=== PATIENT | female | born 1965 | race Caucasian/White ===

== ENCOUNTER 2016-06-19 10:21 | Emergency (ER) | payer OTHER ==
[2016-06-19 12:04] VITALS: BP 125/77
[2016-06-19] MEDS ORDERED: predniSONE TAB* 20 MG PO ONE (12:37)
[2016-06-19] MEDS ORDERED: Ketorolac INJ* 60 MG/2 ML VIAL IM ONE (12:37)
[2016-06-19] MEDS ORDERED: diPHENhydraMINE PO* 25 MG PO ONE (12:37)
--- NOTE | 2016-06-30 20:18 | UC ---
Abdominal Pain Female HPI - HPI Summary HPI Summary: 1. has itching and red rash after using a new soap---2. has burning in mesh hernia site after lifting boxes at work-seen at ED yesterday for same c/o - History of Current Complaint Chief Complaint: UCGeneralIllness Stated Complaint: RASH Time Seen by Provider: 06/19/16 12:14 Hx Obtained From: Patient Hx Last Menstrual Period: 2005 ?: No Onset/Duration: Sudden Onset Timing: Constant Severity Initially: Moderate Severity Currently: Moderate Pain Intensity: 10 Pain Scale Used: 0-10 Numeric Location: Diffuse Radiates: No Character: Burning Aggravating Factor(s): Movement - LIFTING Alleviating Factor(s): Other: - REST Associated Signs and Symptoms: Positive: Negative Allergies/Adverse Reactions: Allergies Allergy/AdvReac Type Severity Reaction Status Date / Time Apple Allergy Severe Swelling Verified 06/10/16 18:49 Amoxicillin Allergy Intermediate Hives Verified 06/19/16 12:04 Morphine Allergy Intermediate Hives Verified 06/19/16 12:04 Penicillins Allergy Intermediate Hives Verified 06/19/16 12:04 SEAWEED SOAP Allergy Hives Uncoded 06/19/16 11:53 Home Medications: Home Medications Albuterol HFA INHALER* [Ventolin HFA Inhaler*] 2 puff INH Q4H PRN 06/19/16 [ History Confirmed 06/19/16] Med For Restless Legs 1 tab PO BEDTIME 06/19/16 [History] traZODone TAB* [Desyrel TAB*] 50 mg PO BEDTIME 06/19/16 [History Confirmed 06/19] PMH/Surg Hx/FS Hx/Imm Hx Previously Healthy: No Endocrine History Of: Denies: Diabetes, Thyroid Disease Cardiovascular History Of: Denies: Cardiac Disorders, Hypertension, Pacemaker/ICD, Myocardial Infarction , Congestive Heart Failure, Deep Vein Thrombosis Respiratory History Of: Reports: Asthma Denies: COPD, Pneumonia, Pulmonary Embolism GI/ History Of: Reports: Ulcer Denies: Gastrointestinal Bleed, Gall Bladder Disease, Kidney Stones, Renal Disease, Urosepsis Neurological History Of: Denies: TIA, Dementia, Seizures, Migraine Psychological History Of: Reports: Anxiety, Depression Cancer History Of: Denies: Lung Cancer Other History Of: Negative For: Anticoagulant Therapy - Surgical History Surgical History: Yes Surgery Procedure, Year, and Place: Concurrent gastric bypass, cholecystectomy, and oopharectomy (pt unsure which ovary) in 1996. Abdominal surgeries for scar tissue in 2003 and 2008. Hand, foot, and knee orthopedic surgery. . CHOLECYSTECTOMY. hernia repair 10/15/15 - Family History Known Family History: Positive: Cardiac Disease, Diabetes, Other - Depression - Social History Occupation: Employed Full-time Lives: With Family Alcohol Use: None Substance Use Type: Prescribed Substance Use Comment - Amount & Last Used: oxycodone 3-325 Smoking Status (MU): Never Smoked Tobacco Review of Systems Constitutional: Negative Skin: Rash Eyes: Negative ENT: Negative Respiratory: Negative Cardiovascular: Negative Gastrointestinal: Abdominal Pain Genitourinary: Negative Motor: Negative Neurovascular: Negative Musculoskeletal: Negative Neurological: Negative Psychological: Negative All Other Systems Reviewed And Are Negative: Yes Physical Exam Triage Information Reviewed: Yes Appearance: Well-Appearing, No Pain Distress, Well-Nourished Vital Signs: Initial Vital Signs Temp 98 F 06/19/16 11:57 Pulse 59 06/19/16 11:57 Resp 14 06/19/16 11:57 BP 125/77 06/19/16 11:57 Pulse Ox 99 06/19/16 11:57 Vital Signs Reviewed: Yes Eye Exam: Normal Eyes: Positive: Conjunctiva Clear ENT Exam: Normal ENT: Positive: Normal ENT inspection, Hearing grossly normal, Pharynx normal. Negative: Trismus, Muffled/hoarse voice Neck exam: Normal Neck: Positive: Supple, Nontender, No Lymphadenopathy Respiratory Exam: Normal Respiratory: Positive: Chest non-tender, Lungs clear, Normal breath sounds, No respiratory distress, No accessory muscle use Cardiovascular Exam: Normal Cardiovascular: Positive: RRR, No Murmur, Pulses Normal, Brisk Capillary Refill Abdominal Exam: Normal Abdomen Description: Positive: Nontender, No Organomegaly, Soft Musculoskeletal Exam: Normal Musculoskeletal: Positive: Strength Intact, ROM Intact, No Edema Neurological Exam: Normal Neurological: Positive: Alert, Muscle Tone Normal Psychological Exam: Normal Psychological: Positive: Normal Response To Family Skin: Positive: Other - uriticaria rash-itchy Abd Pain Female Course/Dx - Course Course Of Treatment: rest-lifting restriction, follow with surgeon in am, prednisone for rash - Differential Dx/Diagnosis Differential Diagnosis: Appendicitis, Bowel Obstruction, Constipation, Other - adhesions, allergic response to soap Provider Diagnoses: abdomen pain, urticaria Discharge - Discharge Plan Condition: Stable Disposition: HOME Prescriptions: predniSONE TAB* [Deltasone TAB*] 20 mg PO DAILY #4 tab Patient Education Materials: Contact Dermatitis (ED), Abdominal Pain (ED) Forms: *School Release Referrals: Cheryl Ocampo MD,Lenny Heck [Medical Doctor] - 1 Day Silva Chopra MD [Primary Care Provider] - 1 Day
== END 2016-06-19 13:02 | disposition home or self-care (01) ==
LOC: UCEAST 10:21
DX: L50.9 Urticaria, unspecified (principal); R10.84 Generalized abdominal pain; Z98.84 Bariatric surgery status; Z90.49 Acquired absence of other specified parts of digestive tract; Z88.6 Allergy status to analgesic agent; Z88.0 Allergy status to penicillin
CPT/HCPCS: 96372; 99213; A9270-GY; G0463; J1885; J7512

== ENCOUNTER 2016-07-03 17:02 | Emergency (ER) | payer OTHER ==
[2016-07-03] MEDS ORDERED: NS 0.9% 1000 ML* 2,000 ML IV ONE (17:38)
[2016-07-03 18:01] LABS: Hematocrit 40 % (35-47); Hemoglobin 13.4 g/dl (12.0-16.0); Mean Corpuscular HGB Conc 33 g/dl (31-36); Mean Corpuscular Hemoglobin 30 pg (27-31); Mean Corpuscular Volume 91 fL (80-97); Mean Platelet Volume 8 um3 (7.4-10.4); Red Blood Count 4.47 10^6/ul (4.0-5.4); Red Cell Distribution Width 15 % (10.5-15); White Blood Count 8.4 10^3/ul (3.5-10.8)
[2016-07-03 18:13] LABS: Albumin 3.9 g/dL (3.2-5.2); BUN/Creatinine Ratio 24.1 (8-20); Calcium 9.3 mg/dL (8.6-10.3); EGFR African American 98.3 (>60); EGFR Non-African American 76.4 (>60); Globulin 2.6 g/dL (2-4); Magnesium 1.9 mg/dL (1.9-2.7); Potassium 4.1 mmol/L (3.5-5.0); Total Bilirubin 0.3 mg/dL (0.2-1.0); Total Protein 6.5 g/dL (6.4-8.9)
[2016-07-03 18:30] LABS: TSH (Thyroid Stimulating Horm) 2.04 mcIU/mL (0.34-5.60)
[2016-07-03] MEDS ORDERED: HYDROmorphone INJ* 1 MG/ML CARPUJECT SYRINGE IV ONE (18:47)
[2016-07-03] MEDS ORDERED: Ondansetron INJ* 2 MG/ML VIAL IV ONE (18:47)
[2016-07-03] MEDS ORDERED: HYDROcodone/ACETAMIN 5-325 MG* 1 TAB PO ONE (22:01)
[2016-07-03 22:18] VITALS: BP 116/64
[2016-07-03 22:28] LABS: Urine Bacteria Absent (Absent); Urine Bilirubin Negative (Negative); Urine Glucose Negative (Negative); Urine Nitrite Negative (Negative)
--- NOTE | 2016-07-04 11:22 | ED ---
Yessica Bobby Michael, scribed for Jairo Patricia MD on 07/03/16 at 1748 . HPI Chest Pain - HPI Summary HPI Summary: 50 y/o female was BIBA to the ED presenting with constant chest pain that started today at 1630. The pt describes the chest pain as heaviness that started suddenly and radiated to her LUE. She also c/o diaphoresis, near syncope and nausea that lasted for 30 minutes until laying down. After laying down, the pt states the CP, near syncope, diaphoresis, and nausea were alleviated. She is positive for back pain and CRUZ that that started a "few" days ago and are still present. The PMHx is significant for a hernia repair that is associated with chronic abd pain. The pt also c/o burning abd pain that started at 1400 today. She notes this is her chronic abd pain. - History of Current Complaint Chief Complaint: EDChestPainROMI Time Seen by Provider: 07/03/16 17:24 Hx Obtained From: Patient, EMS, Medical Records Onset/Duration: Started Hours Ago, Resolved - 1700 Time of Onset: 16:30 Timing: Constant, Lasting Minutes - 30 Initial Severity: Moderate Current Severity: None Pain Intensity: 9 Pain Scale Used: 0-10 Numeric Chest Pain Radiates: Yes Chest Pain Radiates To:: Arm - LUE Character: Heaviness Alleviating Factor(s): Position - laying down Associated Signs and Symptoms: Positive: Chest Pain, Diaphoresis, Nausea, Back Pain, Abdominal Pain, Other: - near syncope. CRUZ. - Additional Pertinent History Primary Care Physician: [id number] - Allergy/Home Medications Allergies/Adverse Reactions: Allergies Allergy/AdvReac Type Severity Reaction Status Date / Time Apple Allergy Severe Swelling Verified 06/10/16 18:49 Amoxicillin Allergy Intermediate Hives Verified 06/19/16 12:04 Morphine Allergy Intermediate Hives Verified 06/19/16 12:04 Penicillins Allergy Intermediate Hives Verified 06/19/16 12:04 SEAWEED SOAP Allergy Hives Uncoded 06/19/16 11:53 PMH/Surg Hx/FS Hx/Imm Hx Cardiovascular History: Reports: Other Cardiovascular Problems/Disorders - Heart Murmur Respiratory History: Reports: Hx Asthma, Hx Sleep Apnea GI History: Reports: Hx Hiatal Hernia, Hx Irritable Bowel, Hx Ulcer History: Reports: Other Problems/Disorders - Herpes I Musculoskeletal History: Reports: Hx Orthopedic Injury - ankle sprains on right , Other Musculoskeletal History - Hand, foot, and knee surgeries Sensory History: Reports: Hx Contacts or Glasses Opthamlomology History: Reports: Hx Contacts or Glasses Psychiatric History: Reports: Hx Anxiety, Hx Depression - Cancer History Cancer Type, Location and Year: STOMACH CA - Surgical History Surgery Procedure, Year, and Place: Concurrent gastric bypass, cholecystectomy, and oopharectomy (pt unsure which ovary) in 1996. Abdominal surgeries for scar tissue in 2003 and 2008. Hand, foot, and knee orthopedic surgery. . CHOLECYSTECTOMY. hernia repair 10/15/15 Infectious Disease History: No - Family History Known Family History: Positive: Cardiac Disease, Diabetes, Other - Depression - Social History Occupation: Unemployed Lives: Alone Alcohol Use: None Hx Substance Use: No Substance Use Type: Reports: Prescribed Substance Use Comment - Amount & Last Used: oxycodone 3-325 Hx Tobacco Use: No Smoking Status (MU): Never Smoked Tobacco Review of Systems Positive: Skin Diaphoresis. Negative: Fever Positive: Chest Pain Positive: Abdominal Pain, Nausea Positive: Other - back pain Neurological: Other - near syncope Positive: Headache All Other Systems Reviewed And Are Negative: Yes Physical Exam Triage Information Reviewed: Yes Vital Signs On Initial Exam: Initial Vitals Temp Pulse Resp BP Pulse Ox 99.0 F 71 18 97/72 95 07/03/16 17:19 07/03/16 17:19 07/03/16 17:19 07/03/16 17:19 07/03/16 17:19 Vital Signs Reviewed: Yes Appearance: Positive: Well-Appearing, Pain Distress Skin: Positive: Warm, Skin Color Reflects Adequate Perfusion, Dry Head/Face: Positive: Normal Head/Face Inspection Eyes: Positive: Normal ENT: Positive: Other - oral mucosa dry Neck: Positive: Supple, Nontender Respiratory/Lung Sounds: Positive: Clear to Auscultation, Breath Sounds Present Cardiovascular: Positive: RRR Abdomen Description: Positive: Soft. Negative: Nontender - tender LUQ Bowel Sounds: Positive: Present Musculoskeletal: Positive: Normal Neurological: Positive: Normal Psychiatric: Positive: Normal, Affect/Mood Appropriate Diagnostics - Vital Signs Vital Signs Temp Pulse Resp BP Pulse Ox 07/03/16 17:19 99.0 F 71 18 97/72 95 - Laboratory Lab Results: Lab Results 07/03/16 07/03/16 07/03/16 Range/Units 17:27 17:27 17:27 WBC 8.4 (3.5-10.8) 10^3/ul RBC 4.47 (4.0-5.4) 10^6/ul Hgb 13.4 (12.0-16.0) g/dl Hct 40 (35-47) % MCV 91 (80-97) fL MCH 30 (27-31) pg MCHC 33 (31-36) g/dl RDW 15 (10.5-15) % Plt Count 209 (150-450) 10^3/ul MPV 8 (7.4-10.4) um3 Neut % (Auto) 87.4 H (38-83) % Lymph % (Auto) 5.6 L (25-47) % [place] % (Auto) 4.6 (1-9) % Eos % (Auto) 2.2 (0-6) % Baso % (Auto) 0.2 (0-2) % Absolute Neuts (auto) 7.4 (1.5-7.7) 10^3/ul Absolute Lymphs (auto) 0.5 L (1.0-4.8) 10^3/ul Absolute Monos (auto) 0.4 (0-0.8) 10^3/ul Absolute Eos (auto) 0.2 (0-0.6) 10^3/ul Absolute Basos (auto) 0 (0-0.2) 10^3/ul Absolute Nucleated RBC 0 10^3/ul Nucleated RBC % 0 D-Dimer, Quantitative (Less Than 230) ng/mL Sodium 138 (133-145) mmol/L Potassium 4.1 (3.5-5.0) mmol/L Chloride 109 (101-111) mmol/L Carbon Dioxide 26 (22-32) mmol/L Anion Gap 3 (2-11) mmol/L BUN 19 (6-24) mg/dL Creatinine 0.79 (0.51-0.95) mg/dL Est GFR ( Amer) 98.3 (>60) Est GFR (Non-Af Amer) 76.4 (>60) BUN/Creatinine Ratio 24.1 H (8-20) Glucose 105 H (70-100) mg/dL Lactic Acid 0.8 (0.5-2.0) mmol/L Calcium 9.3 (8.6-10.3) mg/dL Magnesium 1.9 (1.9-2.7) mg/dL Total Bilirubin 0.30 (0.2-1.0) mg/dL AST 13 (13-39) U/L ALT 9 (7-52) U/L Alkaline Phosphatase 106 H (34-104) U/L Troponin I 0.00 (<0.04) ng/mL Total Protein 6.5 (6.4-8.9) g/dL Albumin 3.9 (3.2-5.2) g/dL Globulin 2.6 (2-4) g/dL Albumin/Globulin Ratio 1.5 (1-3) TSH 2.04 (0.34-5.60) mcIU/mL Urine Color Urine Appearance Urine pH (5-9) Ur Specific [place] (1.010-1.030) Urine Protein (Negative) Urine Ketones (Negative) Urine Blood (Negative) Urine Nitrate (Negative) Urine Bilirubin (Negative) Urine Urobilinogen (Negative) Ur Leukocyte Esterase (Negative) Urine WBC (Auto) (Absent) Urine RBC (Auto) (Absent) Ur Squamous Epith Cells (Absent) Urine Bacteria (Absent) Urine Glucose (Negative) 07/03/16 07/03/16 07/03/16 Range/Units 21:15 21:15 21:44 WBC (3.5-10.8) 10^3/ul RBC (4.0-5.4) 10^6/ul Hgb (12.0-16.0) g/dl Hct (35-47) % MCV (80-97) fL MCH (27-31) pg MCHC (31-36) g/dl RDW (10.5-15) % Plt Count (150-450) 10^3/ul MPV (7.4-10.4) um3 Neut % (Auto) (38-83) % Lymph % (Auto) (25-47) % [place] % (Auto) (1-9) % Eos % (Auto) (0-6) % Baso % (Auto) (0-2) % Absolute Neuts (auto) (1.5-7.7) 10^3/ul Absolute Lymphs (auto) (1.0-4.8) 10^3/ul Absolute Monos (auto) (0-0.8) 10^3/ul Absolute Eos (auto) (0-0.6) 10^3/ul Absolute Basos (auto) (0-0.2) 10^3/ul Absolute Nucleated RBC 10^3/ul Nucleated RBC % D-Dimer, Quantitative 253 H (Less Than 230) ng/mL Sodium (133-145) mmol/L Potassium (3.5-5.0) mmol/L Chloride (101-111) mmol/L Carbon Dioxide (22-32) mmol/L Anion Gap (2-11) mmol/L BUN (6-24) mg/dL Creatinine (0.51-0.95) mg/dL Est GFR ( Amer) (>60) Est GFR (Non-Af Amer) (>60) BUN/Creatinine Ratio (8-20) Glucose (70-100) mg/dL Lactic Acid (0.5-2.0) mmol/L Calcium (8.6-10.3) mg/dL Magnesium (1.9-2.7) mg/dL Total Bilirubin (0.2-1.0) mg/dL AST (13-39) U/L ALT (7-52) U/L Alkaline Phosphatase (34-104) U/L Troponin I 0.00 (<0.04) ng/mL Total Protein (6.4-8.9) g/dL Albumin (3.2-5.2) g/dL Globulin (2-4) g/dL Albumin/Globulin Ratio (1-3) TSH (0.34-5.60) mcIU/mL Urine Color Yellow Urine Appearance Clear Urine pH 5.0 (5-9) Ur Specific [place] 1.017 (1.010-1.030) Urine Protein Negative (Negative) Urine Ketones Negative (Negative) Urine Blood Negative (Negative) Urine Nitrate Negative (Negative) Urine Bilirubin Negative (Negative) Urine Urobilinogen Negative (Negative) Ur Leukocyte Esterase 2+ H (Negative) Urine WBC (Auto) Trace(0-5/hpf) (Absent) Urine RBC (Auto) Trace(0-2/hpf) (Absent) Ur Squamous Epith Cells Present H (Absent) Urine Bacteria Absent (Absent) Urine Glucose Negative (Negative) Result Diagrams: 07/03/16 17:27 07/03/16 17:27 Lab Statement: Any lab studies that have been ordered have been reviewed, and results considered in the medical decision making process. - EKG EK EKG Rhythm: Sinus Rhythm - [address] Segment: Normal Ectopy: None Chest Pain Course/Dx - Course Course Of Treatment: Kandis Mary presented after a near syncopal episode She has been having a lot of problems with chronic LUQ pain after a hiatal hernina repair last September. Today she had constellation of synptoms that started with nausea and included back, chest and LUE pain and CRUZ as well as an episode of the LUQ pain. She felt faint and laid down and her symptoms all resolved except for the LUQ pain. She was evaluated her with ecg, labs, cxr and two trops and treated with IV fluids. Her W/U was negative and she felt better. I recommended close F/U. - Diagnoses Provider Diagnoses: Near syncope Discharge - Discharge Plan Condition: Improved Disposition: HOME Patient Education Materials: Near Syncope (ED) Referrals: Silva Chopra MD [Primary Care Provider] - Additional Instructions: You will follow up with Dr. Chopra within the next 2-3 days. The documentation as recorded by the Yessica lane Michael accurately reflects the service I personally performed and the decisions made by me, Jairo Patricia MD.
== END 2016-07-03 22:17 | disposition home or self-care (01) ==
LOC: ED 17:02
DX: R07.9 Chest pain, unspecified (principal); R55 Syncope and collapse; R51 Headache; R01.1 Cardiac murmur, unspecified; R10.9 Unspecified abdominal pain; R61 Generalized hyperhidrosis; Z88.0 Allergy status to penicillin; Z88.5 Allergy status to narcotic agent
CPT/HCPCS: 36415; 80053; 81003; 81015; 83605; 83735; 84443; 84484; 85025; 85379; 87086; 93005; 96361; 96374; 96375; 99282; J1170; J2405

== ENCOUNTER 2016-08-22 08:54 | Emergency (ER) | payer OTHER ==
[2016-08-22 09:15] VITALS: BP 125/81
--- NOTE | 2016-08-22 10:13 | UC ---
Skin Complaint HPI - HPI Summary HPI Summary: For several days has had increasingly painful, itchy, red area in skin fold at bottom of abdomen. Has been sweatier than normal because she is going to [employer]. Also would like note because she missed [employer] yesterday and today for this. Tried using gold jimenez powder, but it made it burn; other soaps and lotions are making the area burn as well. - History of Current Complaint Chief Complaint: UCSkin Time Seen by Provider: 08/22/16 09:58 Stated Complaint: SKIN ISSUE Hx Obtained From: Patient Hx Last Menstrual Period: 2005 ?: No Onset/Duration: Gradual Onset, Lasting Days Timing: Constant Onset Severity: Mild Current Severity: Mild Location: Discrete Character: Pruritus, Pain, Redness Aggravating: Touch Alleviating: Nothing Associated Signs & Symptoms: Positive: Rash - Allergy/Home Medications Allergies/Adverse Reactions: Allergies Allergy/AdvReac Type Severity Reaction Status Date / Time Apple Allergy Severe Swelling Verified 06/10/16 18:49 Amoxicillin Allergy Intermediate Hives Verified 06/19/16 12:04 Morphine Allergy Intermediate Hives Verified 06/19/16 12:04 Penicillins Allergy Intermediate Hives Verified 06/19/16 12:04 SEAWEED SOAP Allergy Hives Uncoded 06/19/16 11:53 Home Medications: Home Medications DULoxetine CAP* [Cymbalta CAP*] 08/22/16 [History] Review of Systems Constitutional: Negative Skin: Rash Eyes: Negative ENT: Negative Respiratory: Negative Cardiovascular: Negative Gastrointestinal: Negative Genitourinary: Negative Motor: Negative Neurovascular: Negative Musculoskeletal: Negative Neurological: Negative Psychological: Negative All Other Systems Reviewed And Are Negative: Yes PMH/Surg Hx/FS Hx/Imm Hx Endocrine History Of: Denies: Diabetes, Thyroid Disease Cardiovascular History Of: Denies: Cardiac Disorders, Hypertension, Pacemaker/ICD, Myocardial Infarction , Congestive Heart Failure, Deep Vein Thrombosis Respiratory History Of: Reports: Asthma Denies: COPD, Pneumonia, Pulmonary Embolism GI/ History Of: Reports: Ulcer Denies: Gastrointestinal Bleed, Gall Bladder Disease, Kidney Stones, Renal Disease, Urosepsis Neurological History Of: Denies: TIA, Dementia, Seizures, Migraine Psychological History Of: Reports: Anxiety, Depression Cancer History Of: Denies: Lung Cancer Other History Of: Negative For: Anticoagulant Therapy - Surgical History Surgical History: Yes Surgery Procedure, Year, and Place: Concurrent gastric bypass, cholecystectomy, and oopharectomy (pt unsure which ovary) in 1996. Abdominal surgeries for scar tissue in 2003 and 2008. Hand, foot, and knee orthopedic surgery. . CHOLECYSTECTOMY. hernia repair 10/15/15 - Family History Known Family History: Positive: Cardiac Disease, Diabetes, Other - Depression - Social History Alcohol Use: None Substance Use Type: Prescribed Substance Use Comment - Amount & Last Used: oxycodone 3-325 Smoking Status (MU): Never Smoked Tobacco Physical Exam Triage Information Reviewed: Yes Appearance: Well-Appearing, No Pain Distress, Obese Vital Signs: Initial Vital Signs Temp 98.1 F 08/22/16 09:10 Pulse 66 08/22/16 09:10 Resp 16 08/22/16 09:10 BP 125/81 08/22/16 09:10 Pulse Ox 100 08/22/16 09:10 Vital Signs Reviewed: Yes Eye Exam: Normal Eyes: Positive: Conjunctiva Clear ENT Exam: Normal ENT: Positive: Normal ENT inspection, Hearing grossly normal, Pharynx normal, TMs normal Dental Exam: Normal Neck exam: Normal Neck: Positive: Supple, Nontender, No Lymphadenopathy Respiratory Exam: Normal Respiratory: Positive: Chest non-tender, Lungs clear, Normal breath sounds, No respiratory distress, No accessory muscle use Cardiovascular Exam: Normal Cardiovascular: Positive: RRR, No Murmur Musculoskeletal Exam: Normal Neurological Exam: Normal Psychological Exam: Normal Skin Exam: Other - erythema, slightly swollen skin with satellite lesions in skin fold at low abdomen. Course/Dx - Diagnoses Provider Diagnoses: intertrigo on abdomen Discharge - Discharge Plan Condition: Stable Disposition: HOME Prescriptions: Clotrimazole/Betamethasone* [Lotrisone Cream*] 1 applic TOPICAL BID #15 gm Patient Education Materials: Skin Yeast Infection (ED) Forms: *Work Release Referrals: Silva Chopra MD [Primary Care Provider] - If Needed Additional Instructions: Use the cream only until your skin clears up (not longer than 2 weeks). After that, keeping the area dry and free of sweat is the best way to avoid recurrence.
== END 2016-08-22 10:13 | disposition home or self-care (01) ==
LOC: UCEAST 08:54
DX: L30.4 Erythema intertrigo (principal); Z88.5 Allergy status to narcotic agent; Z88.0 Allergy status to penicillin; Z98.84 Bariatric surgery status; Z90.49 Acquired absence of other specified parts of digestive tract
CPT/HCPCS: 99212; G0463

== ENCOUNTER 2016-09-29 09:19 | Emergency (ER) | payer OTHER ==
[2016-09-29 09:58] VITALS: BP 115/80
--- NOTE | 2016-09-29 10:51 | UC ---
Back Pain HPI - HPI Summary HPI Summary: 51 yo female with right upper back and trapezius pain x months worsened by movemtn or lifting dramatically worse past few days unable to sleep due to pain unable to tolerated NSAIDs due to gi problems/anemia - History of Current Complaint Chief Complaint: UCBackPain Stated Complaint: BACK PAIN Time Seen by Provider: 09/29/16 10:32 Hx Obtained From: Patient Hx Last Menstrual Period: 2005 Onset/Duration: Sudden Onset, Lasting Weeks Timing: Constant Severity Initially: Mild Severity Currently: Severe Pain Intensity: 8 Pain Scale Used: 0-10 Numeric Back Pain: Is Diffuse Character: Aching, Throbbing, Spasmodic Aggravating: Movement, Lifting Alleviating: Rest Associated Signs And Symptoms: Positive: Negative Related History: Previous Back Injury - Allergies/Home Medications Allergies/Adverse Reactions: Allergies Allergy/AdvReac Type Severity Reaction Status Date / Time Apple Allergy Severe Swelling Verified 06/10/16 18:49 Amoxicillin Allergy Intermediate Hives Verified 06/19/16 12:04 Morphine Allergy Intermediate Hives Verified 06/19/16 12:04 Penicillins Allergy Intermediate Hives Verified 06/19/16 12:04 SEAWEED SOAP Allergy Hives Uncoded 06/19/16 11:53 Home Medications: Home Medications Gabapentin [Fanatrex Fusepaq] 09/29/16 [History] PMH/Surg Hx/FS Hx/Imm Hx Previously Healthy: Yes Endocrine History Of: Denies: Diabetes, Thyroid Disease Cardiovascular History Of: Denies: Cardiac Disorders, Hypertension, Pacemaker/ICD, Myocardial Infarction , Congestive Heart Failure, Deep Vein Thrombosis Respiratory History Of: Reports: Asthma Denies: COPD, Pneumonia, Pulmonary Embolism GI/ History Of: Reports: Ulcer Denies: Gastrointestinal Bleed, Gall Bladder Disease, Kidney Stones, Renal Disease, Urosepsis Neurological History Of: Denies: TIA, Dementia, Seizures, Migraine Psychological History Of: Reports: Anxiety, Depression Cancer History Of: Denies: Lung Cancer Other History Of: Negative For: Anticoagulant Therapy - Surgical History Surgical History: Yes Surgery Procedure, Year, and Place: Concurrent gastric bypass, cholecystectomy, and oopharectomy (pt unsure which ovary) in 1996. Abdominal surgeries for scar tissue in 2003 and 2008. Hand, foot, and knee orthopedic surgery. . CHOLECYSTECTOMY. hernia repair 10/15/15 - Family History Known Family History: Positive: Cardiac Disease, Diabetes, Other - Depression - Social History Alcohol Use: None Substance Use Type: Prescribed Substance Use Comment - Amount & Last Used: oxycodone 3-325 Smoking Status (MU): Never Smoked Tobacco Review of Systems Constitutional: Negative Skin: Negative Eyes: Negative ENT: Negative Respiratory: Negative Cardiovascular: Negative Gastrointestinal: Negative Genitourinary: Negative Motor: Negative Neurovascular: Negative Musculoskeletal: Decreased ROM, Myalgia Neurological: Negative Psychological: Negative All Other Systems Reviewed And Are Negative: Yes Physical Exam Triage Information Reviewed: Yes Appearance: Well-Appearing, No Pain Distress, Well-Nourished Vital Signs: Initial Vital Signs Temp 97.2 F 09/29/16 09:53 Pulse 65 09/29/16 09:53 Resp 18 09/29/16 09:53 BP 115/80 09/29/16 09:53 Pulse Ox 100 09/29/16 09:53 Vital Signs Reviewed: Yes Eyes: Positive: Conjunctiva Clear ENT: Positive: Hearing grossly normal. Negative: Nasal congestion, Nasal drainage, Trismus, Muffled/hoarse voice Neck: Negative: Supple, Nontender Respiratory: Positive: Lungs clear, Normal breath sounds, No respiratory distress, No accessory muscle use Cardiovascular: Positive: RRR, No Murmur Musculoskeletal: Positive: No Edema Neurological: Positive: Alert Psychological Exam: Normal Skin Exam: Normal Back Pain Course/Dx - Differential Dx/Diagnosis Provider Diagnoses: right trapezius strain. right rhomboid strain Discharge - Discharge Plan Condition: Stable Disposition: HOME Prescriptions: oxyCODONE/Acetamin 5/325 MG* [Percocet 5/325 TAB*] 1 tab PO Q4H PRN #15 tab MDD 3 PRN Reason: Pain - Severe Patient Education Materials: Thoracic Back Strain (ED) Forms: *Work Release Referrals: Silva Chopra MD [Primary Care Provider] - 3 Days (recheck early next week if not better) Images Head: 1 - tender/tense Front/Back of Body, Lg ([place]): 1 - tender
== END 2016-09-29 10:56 | disposition home or self-care (01) ==
LOC: UCEAST 09:19
DX: S46.911A Strain of unspecified muscle, fascia and tendon at shoulder and upper arm level, right arm, initial encounter (principal); X58.XXXA Exposure to other specified factors, initial encounter; Y93.9 Activity, unspecified; Y92.9 Unspecified place or not applicable; J45.909 Unspecified asthma, uncomplicated; Z98.84 Bariatric surgery status; Z90.49 Acquired absence of other specified parts of digestive tract; Z88.1 Allergy status to other antibiotic agents; Z88.5 Allergy status to narcotic agent; Z88.0 Allergy status to penicillin
CPT/HCPCS: 99212; G0463

== ENCOUNTER 2016-10-11 08:31 | Emergency (ER) | payer OTHER ==
[2016-10-11 08:54] VITALS: BP 122/94
[2016-10-11] MEDS ORDERED: Ketorolac INJ* 30 MG/ML 1 ML VIAL IV PUSH ONE (10:39)
--- NOTE | 2016-10-11 10:43 | UC ---
Abdominal Pain Female HPI - HPI Summary HPI Summary: PT WITH SEVERAL DAYS OF WORSENING ABDOMINAL PAIN AND CRAMPING. HAS A H/O MULTIPLE ABDOMINAL SURGERIES INCLUDING A HERNIA REPAIR A YEAR AGO, OOPHORECTOMY , GASTRIC BYPASS, CHOLECYSTECTOMY, ADHESIOLYSIS X 2, . NO FEVER. - History of Current Complaint Chief Complaint: UCAbdominalPain Stated Complaint: ABDOMINAL PAIN Time Seen by Provider: 10/11/16 10:32 Hx Obtained From: Patient Hx Last Menstrual Period: 2005 Onset/Duration: Gradual Onset, Lasting Days, Still Present Timing: Constant Severity Initially: Moderate Severity Currently: Severe Pain Intensity: 10 Pain Scale Used: 0-10 Numeric Location: Diffuse Radiates: No Character: Aching, Burning, Sharp Alleviating Factor(s): Nothing Associated Signs and Symptoms: Positive: Back Pain. Negative: Fever, Constipation, Blood in Stool, Urinary Symptoms, Nausea Allergies/Adverse Reactions: Allergies Allergy/AdvReac Type Severity Reaction Status Date / Time Apple Allergy Severe Swelling Verified 06/10/16 18:49 Amoxicillin Allergy Intermediate Hives Verified 06/19/16 12:04 Morphine Allergy Intermediate Hives Verified 06/19/16 12:04 Penicillins Allergy Intermediate Hives Verified 06/19/16 12:04 SEAWEED SOAP Allergy Hives Uncoded 06/19/16 11:53 Home Medications: Home Medications Gabapentin CAP(*) [Neurontin 100 mg CAP(*)] 1 tab PO QID 10/11/16 [History Confirmed 10/11/16] PMH/Surg Hx/FS Hx/Imm Hx Endocrine History Of: Denies: Diabetes, Thyroid Disease Cardiovascular History Of: Denies: Cardiac Disorders, Hypertension, Pacemaker/ICD, Myocardial Infarction , Congestive Heart Failure, Deep Vein Thrombosis Respiratory History Of: Reports: Asthma Denies: COPD, Pneumonia, Pulmonary Embolism GI/ History Of: Reports: Ulcer Denies: Gastrointestinal Bleed, Gall Bladder Disease, Kidney Stones, Renal Disease, Urosepsis Neurological History Of: Reports: Migraine Denies: TIA, Dementia, Seizures Psychological History Of: Reports: Anxiety, Depression Cancer History Of: Denies: Lung Cancer Other History Of: Negative For: Anticoagulant Therapy - Surgical History Surgical History: Yes Surgery Procedure, Year, and Place: Concurrent gastric bypass, cholecystectomy, and oopharectomy (pt unsure which ovary) in 1996. Abdominal surgeries for scar tissue in 2003 and 2008. Hand, foot, and knee orthopedic surgery. . CHOLECYSTECTOMY. hernia repair 10/15/15 - Family History Known Family History: Positive: Cardiac Disease, Diabetes, Other - Depression - Social History Alcohol Use: None Substance Use Type: Prescribed Substance Use Comment - Amount & Last Used: oxycodone 3-325 Smoking Status (MU): Never Smoked Tobacco - Immunization History Most Recent Tetanus Shot: season Review of Systems Constitutional: Negative Respiratory: Negative Cardiovascular: Negative Gastrointestinal: Abdominal Pain Genitourinary: Negative All Other Systems Reviewed And Are Negative: Yes Physical Exam Triage Information Reviewed: Yes Appearance: Well-Nourished, Pain Distress - SEVERE - PT TEARFUL, HOLDING BELLY, HUNCHED OVER Vital Signs: Initial Vital Signs Temp 98.5 F 10/11/16 08:46 Pulse 75 10/11/16 08:46 Resp 18 10/11/16 08:46 BP 122/94 10/11/16 08:46 Pulse Ox 100 10/11/16 08:46 Vital Signs Reviewed: Yes Eyes: Positive: Conjunctiva Clear ENT: Positive: Hearing grossly normal Neck: Positive: Supple Respiratory Exam: Normal Cardiovascular Exam: Normal Abdomen Description: Positive: Soft, Other: - EXQUISITELY TTP LUQ. MILDLY TENDER DIFFUSELY. NO REBOUND OR RIGIDITY. Negative: CVA Tenderness (R), CVA Tenderness (L), Distended, Guarding Musculoskeletal: Positive: No Edema Neurological: Positive: Alert Psychological: Positive: Age Appropriate Behavior Skin: Negative: rashes Abd Pain Female Course/Dx - Differential Dx/Diagnosis Provider Diagnoses: ABDOMINAL PAIN - Physician Notification/Consults Discussed Patient Care With: APRIL DUENAS Time Discussed With Above Provider: 10:42 - TO [facility] BY AMBULANCE Discharge - Discharge Plan Condition: Stable Disposition: [facility] Referrals: Silva Chopra MD [Primary Care Provider] -
== END 2016-10-11 11:02 | disposition short-term general hospital (02) ==
LOC: UCEAST 08:31
DX: R10.12 Left upper quadrant pain (principal); J45.909 Unspecified asthma, uncomplicated; G43.909 Migraine, unspecified, not intractable, without status migrainosus; F41.8 Other specified anxiety disorders; Z98.84 Bariatric surgery status; Z90.49 Acquired absence of other specified parts of digestive tract; Z88.1 Allergy status to other antibiotic agents; Z88.5 Allergy status to narcotic agent; Z88.0 Allergy status to penicillin
CPT/HCPCS: 99213; G0463

== ENCOUNTER 2016-10-11 11:19 | Emergency (ER) | payer OTHER ==
[2016-10-11 14:12] LABS: Hematocrit 37 % (35-47); Hemoglobin 12.6 g/dl (12.0-16.0); Mean Corpuscular HGB Conc 34 g/dl (31-36); Mean Corpuscular Hemoglobin 30 pg (27-31); Mean Corpuscular Volume 89 fL (80-97); Mean Platelet Volume 7 um3 (7.4-10.4); Red Blood Count 4.18 10^6/ul (4.0-5.4); Red Cell Distribution Width 14 % (10.5-15); White Blood Count 5.7 10^3/ul (3.5-10.8)
[2016-10-11 14:31] LABS: ALT 10 U/L (7-52); AST 14 U/L (13-39); Albumin 3.7 g/dL (3.2-5.2); Alkaline Phosphatase 112 U/L (34-104); Anion Gap 5 mmol/L (2-11); BUN/Creatinine Ratio 14.9 (8-20); Blood Urea Nitrogen 11 mg/dL (6-24); C Reactive Protein < 1.00 mg/L (< 5.00); CO2 Carbon Dioxide 27 mmol/L (22-32); Calcium 9.2 mg/dL (8.6-10.3); Chloride 106 mmol/L (101-111); EGFR African American 105.6 (>60); EGFR Non-African American 82.1 (>60); Globulin 2.8 g/dL (2-4); Glucose 100 mg/dL (70-100); Lipase 26 U/L (11.0-82.0); Potassium 3.5 mmol/L (3.5-5.0); Sodium 138 mmol/L (133-145); Total Protein 6.5 g/dL (6.4-8.9)
--- NOTE | 2016-10-11 14:57 | RAD ---
CLINICAL HISTORY: Left flank pain COMPARISON: December 29, 2015 TECHNIQUE: Multiple contiguous axial CT scans were obtained of the abdomen and pelvis after the administration of intravenous contrast. Coronal and sagittal multiplanar reformations are submitted for review. Oral contrast was not administered. FINDINGS: The study is limited by the lack of intravenous contrast. This limits evaluation of the solid organs and vasculature. LUNG BASES: The lung bases are clear. LIVER: The liver is normal in shape, size, contour, and attenuation. BILE DUCTS: There is no intrahepatic or extrahepatic biliary dilatation. GALLBLADDER: The gallbladder is not visualized. Surgical clips are noted in the gallbladder fossa. PANCREAS: The pancreas is normal, without mass or ductal dilatation. SPLEEN: Normal in size and appearance. UPPER GI TRACT: Evaluation of the gastrointestinal tract is limited by incomplete gastric distention. There is postsurgical change to the upper GI tract. SMALL BOWEL AND MESENTERY: The small bowel is normal in contour, course, and caliber. There is no obstruction or dilatation. COLON: The colon is normal in contour, course, caliber. There is no pericolonic inflammatory change. ADRENALS: Normal bilaterally. KIDNEYS: The kidneys are normal in shape, size, contour, and axis. There is no hydronephrosis or nephrolithiasis. BLADDER: The bladder is smooth in contour. PELVIC ORGANS: The uterus and adnexa are grossly normal for technique. There is a small amount of fluid within the pelvic cul-de-sac. AORTA: The aorta is normal. IVC: Unremarkable LYMPH NODES: There is no lymphadenopathy by size criteria. ABDOMINAL WALL: There is no evidence for abdominal wall hernia. BONES AND SOFT TISSUES: Unremarkable OTHER: None IMPRESSION: SMALL AMOUNT OF FLUID WITHIN THE PELVIC CUL-DE-SAC. OTHERWISE UNREMARKABLE NONCONTRAST CT OF THE ABDOMEN AND PELVIS
[2016-10-11] MEDS ORDERED: Ondansetron INJ* 2 MG/ML VIAL IV ONE (15:59)
[2016-10-11] MEDS ORDERED: HYDROmorphone* 1 MG/ML 1 ML SYR IV ONE (15:59)
[2016-10-11 16:38] VITALS: BP 118/92
[2016-10-11 17:20] LABS: Erythrocyte Sed Rate 12 mm/Hr (0-30)
--- NOTE | 2016-10-11 18:33 | ED ---
Eric Bobby Billy, scribed for Jairo Patricia MD on 10/11/16 at 1247 . Abdominal Pain/Female - HPI Summary HPI Summary: Patient is a 51 year-old female coming to [facility] for evaluation of several days of abdominal pain at her previous hernia surgical site. She had a hernia repair last year. The pain is intermittent, lasting several minutes at a time. She also reports headache, chills, nausea, vomiting, and increased urinary frequency. However, she has had no change in BM. - History of Current Complaint Chief Complaint: EDAbdPain Stated Complaint: ABD PAIN, COMMING FROM [facility] Time Seen by Provider: 10/11/16 12:14 Hx Obtained From: Patient Hx Last Menstrual Period: 2005 Onset/Duration: Gradual Onset, Lasting Days, Still Present Timing: Intermittent Episode Lasting Severity Initially: Moderate Severity Currently: Moderate Pain Intensity: 7 Pain Scale Used: 0-10 Numeric Radiates: No Aggravating Factor(s): Nothing Alleviating Factor(s): Nothing Associated Signs and Symptoms: Positive: Urinary Symptoms - increased frequency , Nausea, Vomiting, Other: - chills Allergies/Adverse Reactions: Allergies Allergy/AdvReac Type Severity Reaction Status Date / Time Apple Allergy Severe Swelling Verified 06/10/16 18:49 Amoxicillin Allergy Intermediate Hives Verified 06/19/16 12:04 Morphine Allergy Intermediate Hives Verified 06/19/16 12:04 Penicillins Allergy Intermediate Hives Verified 06/19/16 12:04 SEAWEED SOAP Allergy Hives Uncoded 06/19/16 11:53 PMH/Surg Hx/FS Hx/Imm Hx Cardiovascular History: Reports: Other Cardiovascular Problems/Disorders - Heart Murmur Respiratory History: Reports: Hx Asthma, Hx Sleep Apnea GI History: Reports: Hx Hiatal Hernia, Hx Irritable Bowel, Hx Ulcer History: Reports: Other Problems/Disorders - Herpes I Musculoskeletal History: Reports: Hx Orthopedic Injury - ankle sprains on right , Other Musculoskeletal History - Hand, foot, and knee surgeries Sensory History: Reports: Hx Contacts or Glasses Opthamlomology History: Reports: Hx Contacts or Glasses Psychiatric History: Reports: Hx Anxiety, Hx Depression - Cancer History Cancer Type, Location and Year: STOMACH CA - Surgical History Surgery Procedure, Year, and Place: Concurrent gastric bypass, cholecystectomy, and oopharectomy (pt unsure which ovary) in 1996. Abdominal surgeries for scar tissue in 2003 and 2008. Hand, foot, and knee orthopedic surgery. . CHOLECYSTECTOMY. hernia repair 10/15/15 - Family History Known Family History: Positive: Cardiac Disease, Diabetes, Other - Depression - Social History Alcohol Use: None Hx Substance Use: No Substance Use Type: Reports: None, Prescribed Substance Use Comment - Amount & Last Used: oxycodone 3-325 Hx Tobacco Use: No Smoking Status (MU): Never Smoked Tobacco Review of Systems Positive: Chills Positive: Abdominal Pain, Vomiting, Nausea Positive: frequency Positive: Headache All Other Systems Reviewed And Are Negative: Yes Physical Exam Triage Information Reviewed: Yes Vital Signs On Initial Exam: Initial Vitals Temp Pulse Resp BP Pulse Ox 98.5 F 75 18 122/80 99 10/11/16 11:21 10/11/16 11:21 10/11/16 11:21 10/11/16 11:21 10/11/16 11:21 Vital Signs Reviewed: Yes Appearance: Positive: Well-Appearing, Pain Distress Skin: Positive: Warm, Skin Color Reflects Adequate Perfusion, Dry Head/Face: Positive: Normal Head/Face Inspection Eyes: Positive: Normal ENT: Positive: Normal ENT inspection Neck: Positive: Supple, Nontender Respiratory/Lung Sounds: Positive: Clear to Auscultation, Breath Sounds Present Cardiovascular: Positive: RRR Abdomen Description: Positive: Soft, Other: - Tender to the RUQ and LLQ. Musculoskeletal: Positive: Normal Neurological: Positive: Normal, Sensory/Motor Intact, Alert, Oriented to Person Place, Time Psychiatric: Positive: Affect/Mood Appropriate - [place] Coma Scale Coma Scale Total: 15 Diagnostics - Vital Signs Vital Signs Temp Pulse Resp BP Pulse Ox 10/11/16 11:49 69 99 10/11/16 11:24 98.5 F 75 18 122/84 98 10/11/16 11:21 98.5 F 75 18 122/80 99 - Laboratory Lab Results: Lab Results 10/11/16 10/11/16 10/11/16 Range/Units 14:00 14:00 14:00 WBC 5.7 (3.5-10.8) 10^3/ul RBC 4.18 (4.0-5.4) 10^6/ul Hgb 12.6 (12.0-16.0) g/dl Hct 37 (35-47) % MCV 89 (80-97) fL MCH 30 (27-31) pg MCHC 34 (31-36) g/dl RDW 14 (10.5-15) % Plt Count 214 (150-450) 10^3/ul MPV 7 L (7.4-10.4) um3 Neut % (Auto) 62.7 (38-83) % Lymph % (Auto) 26.9 (25-47) % [place] % (Auto) 4.6 (1-9) % Eos % (Auto) 4.8 (0-6) % Baso % (Auto) 1.0 (0-2) % Absolute Neuts (auto) 3.5 (1.5-7.7) 10^3/ul Absolute Lymphs (auto) 1.5 (1.0-4.8) 10^3/ul Absolute Monos (auto) 0.3 (0-0.8) 10^3/ul Absolute Eos (auto) 0.3 (0-0.6) 10^3/ul Absolute Basos (auto) 0.1 (0-0.2) 10^3/ul Absolute Nucleated RBC 0 10^3/ul Nucleated RBC % 0 ESR 12 (0-30) mm/Hr Sodium 138 (133-145) mmol/L Potassium 3.5 (3.5-5.0) mmol/L Chloride 106 (101-111) mmol/L Carbon Dioxide 27 (22-32) mmol/L Anion Gap 5 (2-11) mmol/L BUN 11 (6-24) mg/dL Creatinine 0.74 (0.51-0.95) mg/dL Est GFR ( Amer) 105.6 (>60) Est GFR (Non-Af Amer) 82.1 (>60) BUN/Creatinine Ratio 14.9 (8-20) Glucose 100 (70-100) mg/dL Lactic Acid 0.7 (0.5-2.0) mmol/L Calcium 9.2 (8.6-10.3) mg/dL Total Bilirubin 0.50 (0.2-1.0) mg/dL AST 14 (13-39) U/L ALT 10 (7-52) U/L Alkaline Phosphatase 112 H (34-104) U/L C-Reactive Protein < 1.00 (< 5.00) mg/L Total Protein 6.5 (6.4-8.9) g/dL Albumin 3.7 (3.2-5.2) g/dL Globulin 2.8 (2-4) g/dL Albumin/Globulin Ratio 1.3 (1-3) Lipase 26 (11.0-82.0) U/L Result Diagrams: 10/11/16 14:00 10/11/16 14:00 Lab Statement: Any lab studies that have been ordered have been reviewed, and results considered in the medical decision making process. - CT abd/pel CT Interpretation Completed By: Radiologist - SMALL AMOUNT OF FLUID WITHIN THE PELVIC CUL-DE-SAC. OTHERWISE UNREMARKABLE NONCONTRAST CT OF THE ABDOMEN AND PELVIS Re-Evaluation - Re-Evaluation First Eval Re-Evaluation Time: 15:35 Change: Improved Comment: Imaging and labs reviewed. Abdominal Pain Fem Course/Dx - Course Course Of Treatment: Ms. Mary has been C/O pain which has not been diagnosed although her PMD, Dr. Chopra, has ordered some labs. Her W/U here was negative and I will treat her pain transiently while she F/U with Dr. Chopra for further W/U. - Diagnoses Provider Diagnoses: Abdominal pain Discharge - Discharge Plan Condition: Stable Disposition: HOME Prescriptions: oxyCODONE/Acetamin 5/325 MG* [Percocet 5/325 TAB*] 1 tab PO Q6H PRN #20 tab MDD 4 PRN Reason: Pain Patient Education Materials: Abdominal Pain (ED) Referrals: Silva Chopra MD [Primary Care Provider] - Additional Instructions: FOLLOW UP WITH YOUR PRIMARY CARE PHYSICIAN THIS WEEK. The documentation as recorded by the Eric lane Billy accurately reflects the service I personally performed and the decisions made by me, Jairo Patricia MD.
== END 2016-10-11 16:37 | disposition home or self-care (01) ==
LOC: ED 11:19
DX: R10.9 Unspecified abdominal pain (principal); R11.2 Nausea with vomiting, unspecified; R51 Headache
CPT/HCPCS: 36415; 74176; 80053; 83605; 83690; 85025; 85652; 86140; 86803; 96374; 96375; 99283; J1170; J2405

== ENCOUNTER 2016-12-21 15:56 | Emergency (ER) | payer OTHER ==
[2016-12-21 16:05] VITALS: BP 125/79
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
== END 2016-12-21 17:11 | disposition home or self-care (01) ==
LOC: UCEAST 15:56
DX: L55.9 Sunburn, unspecified (principal); J45.909 Unspecified asthma, uncomplicated; G43.909 Migraine, unspecified, not intractable, without status migrainosus; E66.9 Obesity, unspecified; Z88.3 Allergy status to other anti-infective agents; Z88.5 Allergy status to narcotic agent; Z88.0 Allergy status to penicillin
CPT/HCPCS: 99212; G0463

== ENCOUNTER 2017-01-07 09:51 | Emergency (ER) | payer OTHER ==
[2017-01-07] MEDS ORDERED: Ketorolac INJ* 30 MG/ML 1 ML VIAL IV PUSH ONE (14:24)
[2017-01-07 14:57] VITALS: BP 118/91
--- NOTE | 2017-01-08 09:28 | ED ---
Jennifer Bobby Thomas, scribed for Will Valenzuela MD on 01/07/17 at 1423 . Back Pain - HPI Summary HPI Summary: The pt is a 51 y/o F presenting to the ED c/o back pain that began 3 days ago. The patient thinks that she exerted herself and pulled a muscle on her back. She reports a pinching feeling in her back. She rates her pain 9/10. She took ibuprofen and imitrex [employer]. Pt additionally c/o inability to eat, leg pain ( attributed to sitting), abd pain, CRUZ, and N/V. Pt denies any urinary or fecal dysfunction. PMHx: messed up back, IBS, anxiety, asthma, Parkinsons, restless leg syndrome, scoliosis. PSHx: hernia surgery (15 months ago). Since her hernia surgery, she was [place] [facility] [place] has been having chronic back and abd pain. - History of Current Complaint Chief Complaint: EDGeneral Stated Complaint: ABD PAIN, BACK PIAN, Time Seen by Provider: 01/07/17 14:15 Hx Obtained From: Patient Hx Last Menstrual Period: 2005 Onset/Duration: Gradual Onset, Lasting Days - 3 days, Still Present Timing: Constant Severity Currently: Severe Pain Intensity: 9 Pain Scale Used: 0-10 Numeric Aggravating Symptom(s): Movement Associated Signs And Symptoms: Positive: Abdominal Pain, Other - POS: inability to eat, leg pain (attributed to sitting), abd pain, CRUZ, N/V. Negative: Fever, Bladder Incontinence, Bowel Incontinence - Allergies/Home Medications Allergies/Adverse Reactions: Allergies Allergy/AdvReac Type Severity Reaction Status Date / Time Apple Allergy Severe Swelling Verified 12/21/16 16:05 Amoxicillin Allergy Intermediate Hives Verified 12/21/16 16:05 Morphine Allergy Intermediate Hives Verified 12/21/16 16:05 Penicillins Allergy Intermediate Hives Verified 12/21/16 16:05 SEAWEED SOAP Allergy Hives Uncoded 12/21/16 16:05 PMH/Surg Hx/FS Hx/Imm Hx Previously Healthy: No Endocrine/Hematology History: Denies: Hx Anticoagulant Therapy, Hx Blood Disorders, Hx Blood Transfusions, Hx Bone Marrow Disease, Hx Diabetes, Hx Systemic Lupus Erythematosus, Hx Sickle Cell Disease, Hx Thyroid Disease, Hx Anemia, Hx Unexplained Bleeding, Other Endocrine/Hematological Disorders Cardiovascular History: Reports: Other Cardiovascular Problems/Disorders - Heart Murmur Denies: Hx Aneurysm, Hx Angina, Hx Angioplasty, Hx Atrial Fibrillation, Hx Auto Implanted Cardiovert Defib, Hx Cardiac Arrest, Hx Cardiomegaly, Hx Congenital Heart Disease, Hx Congestive Heart Failure, Hx Coronary Artery Disease, Hx Deep Vein Thrombosis, Hx Embolism, Hx Hypercholesterolemia, Hx Hypotension, Hx Hypertension, Hx Myocardial Infarction, Hx Pacemaker/ICD, Hx Peripheral Vascular Disease, Hx Rheumatic Fever, Hx Syncope, Hx Valvular Heart Disease Respiratory History: Reports: Hx Asthma, Hx Sleep Apnea Denies: Hx Bronchopulmonary Dysplasia, Hx Chronic Bronchitis, Hx Chronic Obstructive Pulmonary Disease (COPD), Hx Cystic Fibrosis, Hx Lung Cancer, Hx Pleural Effusion, Hx Pneumonia, Hx Pulmonary Edema, Hx Pulmonary Embolism, Hx Seasonal Allergies, Other Respiratory Problems/Disorders GI History: Reports: Hx Hiatal Hernia, Hx Irritable Bowel Denies: Hx Cirrhosis, Hx Crohn's Disease, Hx Diverticulosis, Hx Gall Bladder Disease, Hx Gastroesophageal Reflux Disease, Hx Gastrointestinal Bleed, Hx Jaundice, Hx Obstructive Bowel, Hx Ileostomy, Hx Pyloric Stenosis, Hx Ulcer, Hx Urosepsis, Other GI Disorders History: Reports: Other Problems/Disorders - Herpes I Denies: Hx Acute Renal Failure, Hx Benign Prostatic Hyperplasia, Hx Chronic Renal Failure, Hx Dialysis, Hx Kidney Infection, Hx Kidney Stones, Hx Renal Disease Musculoskeletal History: Reports: Hx Orthopedic Injury - ankle sprains on right , Other Musculoskeletal History - Hand, foot, and knee surgeries Sensory History: Reports: Hx Contacts or Glasses Denies: Hx Cataracts, Hx Eye Injury, Hx Eye Prosthesis, Hx Glaucoma, Hx Legally Blind, Hx Macular Degeneration, Hx Vision Problem, Hx Deafness, Hx Hearing Aid, Hx Hearing Problem, Other Sensory Impairments Opthamlomology History: Reports: Hx Contacts or Glasses Denies: Hx Cataracts, Hx Eye Injury, Hx Eye Prosthesis, Hx Glaucoma, Hx Legally Blind, Hx Macular Degeneration, Hx Vision Problem, Other Sensory Impairments Neurological History: Denies: Hx CVA, Hx Dementia, Hx Developmental Delay, Hx Headaches, Hx Migraine, Hx Nerve Disease, Hx Peripheral Neuropathy, Hx Seizures, Hx Spinal Cord Injury, Hx Transient Ischemic Attacks (TIA), Other Neuro Impairments/ Disorders Psychiatric History: Reports: Hx Anxiety, Hx Depression - Cancer History Cancer Type, Location and Year: STOMACH CA - Surgical History Surgery Procedure, Year, and Place: Concurrent gastric bypass, cholecystectomy, and oopharectomy (pt unsure which ovary) in 1996. Abdominal surgeries for scar tissue in 2003 and 2008. Hand, foot, and knee orthopedic surgery. . CHOLECYSTECTOMY. hernia repair 10/15/15 Infectious Disease History: No Infectious Disease History: Denies: Hx Clostridium Difficile, Hx Hepatitis, Hx Human Immunodeficiency Virus (HIV), Hx of Known/Suspected MRSA, Hx Shingles, Hx Tuberculosis, Hx Known/ Suspected VRE, Hx Known/Suspected VRSA, History Other Infectious Disease, Traveled Outside the [place] in Last 30 Days - Family History Known Family History: Positive: Cardiac Disease, Diabetes, Other - Depression - Social History Alcohol Use: None Hx Substance Use: No Substance Use Type: Reports: None, Prescribed Substance Use Comment - Amount & Last Used: oxycodone 3-325 Hx Tobacco Use: No Smoking Status (MU): Never Smoked Tobacco Review of Systems Positive: Other - POS: inabillity to eat. Negative: Fever Eyes: Negative ENT: Negative Cardiovascular: Negative Respiratory: Negative Positive: Abdominal Pain, Vomiting, Nausea. Negative: Other - NEG: fecal incontinence Genitourinary: Negative Negative: incontinence Positive: Other - POS: back pain (onset 3 days ago, 02/25, aggravated by movement ), leg pain (attributed to sitting) Skin: Negative Positive: Headache Psychological: Normal All Other Systems Reviewed And Are Negative: Yes Physical Exam - Summary Physical Exam Summary: VITAL SIGNS: Reviewed. GENERAL: Patient is a well-developed and nourished female who is lying comfortable in the stretcher. ~Patient is not in any acute respiratory distress. HEAD AND FACE: Normocephalic and atraumatic. EYES: PERRLA, EOMI x 2, No injected conjunctiva. EARS: Hearing grossly intact. Ear canals and tympanic membranes are WNL. MOUTH: Oropharynx within normal limits. NECK: Supple, trachea is midline, no adenopathy, no JVD. CHEST: Symmetric, no tenderness at palpation LUNGS: Clear to auscultation bilaterally. No wheezing or crackles. CVS: RRR, S1 and S2 present, no murmurs or gallops appreciated. ABDOMEN: Positive paraspinal tenderness in the lumbar spine. No vertebral tenderness. Soft, non-tender. No signs of distention. Positive bowel sounds. No rebound no guarding, and no masses palpated. No abdominal bruit or pulsations. EXTREMITIES: FROM in all major joints, no edema, no cyanosis or clubbing. NEURO: Alert and oriented x 3. No acute neurological deficits. Speech is normal. SKIN: Dry and warm Triage Information Reviewed: Yes Vital Signs On Initial Exam: Initial Vitals Temp Pulse Resp BP Pulse Ox 98.8 F 67 16 114/87 99 01/07/17 09:54 01/07/17 09:54 01/07/17 09:54 01/07/17 09:54 01/07/17 09:54 Vital Signs Reviewed: Yes Diagnostics - Vital Signs Vital Signs Temp Pulse Resp BP Pulse Ox 01/07/17 11:57 97 F 54 16 117/56 100 01/07/17 09:54 98.8 F 67 16 114/87 99 - Laboratory Lab Statement: Any lab studies that have been ordered have been reviewed, and results considered in the medical decision making process. Back Pain Course/Dx - Course Assessment/Plan: The pt is a 51 y/o F presenting to the ED c/o back pain that began 3 days ago. The patient thinks that she exerted herself and pulled a muscle on her back. She reports a pinching feeling in her back. She rates her pain 9/10. She took ibuprofen and imitrex [employer]. The pain is aggravated by movement. Pt additionally c/o inability to eat, leg pain (attributed to sitting) , abd pain, CRUZ, and N/V. Pt denies any urinary or fecal incontinence. PMHx: messed up back, IBS, anxiety, asthma, Parkinsons, restless leg syndrome, scoliosis. PSHx: hernia surgery (15 months ago). Since her hernia surgery, she was admitted [place] [facility] [place] has been having chronic back and abd pain. The patient refused bloodwork. The patient reports that she had abdominal pain similar to her abdominal pain in September when she had a CT that revealed no significant abnormalities. However, the patient presents to the ED mostly because she has back pain in her lumbar spine. She declined any imaging, she is here with degenerative discitis and only needs pain medications. Therefore, because the patient has no urinary or fecal dysfunction, is ambulating with a steady walk, and has no vertebral tenderness, she was given Toradol and discharged home with a prescription of naproxen and Robaxin. The patient agrees and understands the benefits/risks of bloodwork and imaging, however, the patient declines. Therefore, the patient will be discharged with follow-up with her PCP. She was instructed to return to the ED if symptoms worsen or if she develops fever, worse abd pain, N/V, or worse back pain. - Diagnoses Differential Diagnosis/HQI/PQRI: Positive: Fracture, Herniated Disc, Strain, Sprain Provider Diagnoses: Lumbago Discharge - Discharge Plan Condition: Stable Disposition: HOME Prescriptions: Methocarbamol TAB* [Robaxin 500 MG TAB*] 750 mg PO TID #9 tab Naproxen TAB* [Naprosyn 250 mg TAB*] 500 mg PO Q8H PRN #20 tab PRN Reason: Pain Patient Education Materials: Back Pain (ED) Forms: *Work Release Referrals: Silva Chopra MD [Primary Care Provider] - 3 Days The documentation as recorded by the Jennifer lane Thomas accurately reflects the service I personally performed and the decisions made by Nicolas argueta Walter, MD.
== END 2017-01-07 15:01 | disposition home or self-care (01) ==
LOC: ED 09:51
DX: M54.5 Low back pain (principal); M54.9 Dorsalgia, unspecified; R10.9 Unspecified abdominal pain
CPT/HCPCS: 96374; 99282; J1885

== ENCOUNTER 2017-01-09 11:53 | Emergency (ER) | payer OTHER ==
[2017-01-09] MEDS ORDERED: Ketorolac INJ* 60 MG/2 ML VIAL IM ONE (13:31)
[2017-01-09 14:01] VITALS: BP 110/70
--- NOTE | 2017-01-09 14:05 | UC ---
Abdominal Pain Female HPI - HPI Summary HPI Summary: 51 y/o female presents to the urgent care c/o of pulling a muscle in his lower back and on the left side of the abdomen since 01/07/2017. Pt states she has mild CRUZ and feels hot and cold w/ decrease appetite. Pt reports she went to the ER with similar symptoms and was RX Naproxen and Robaxin and her symptoms are not improving. Pt states her pain 10/10 specially with movement. She states her PCP Dr Chopra has Rx oxycodon before for her back pain and her elio resolves.Pt PMHX of Degenerative disease, scoliosis, Abdominal hernia repair in 2016, gastric bypass, cholecystectomy. Pt denies urinary or fecal incontinenece , saddle anesthesia, Fever, SOB, chest pain, N/V/D. Pt requests an note for work. - History of Current Complaint Chief Complaint: UCBackPain Stated Complaint: ABDOMINAL PAIN Time Seen by Provider: 01/09/17 13:13 Hx Obtained From: Patient Hx Last Menstrual Period: 2005 ?: No Onset/Duration: Gradual Onset, Lasting Days, Still Present Timing: Constant Severity Initially: Moderate Severity Currently: Severe Pain Intensity: 10 - w/ movement Pain Scale Used: 0-10 Numeric Location: Other - lower back pain and left sided abdominal pain. Radiates: No Character: Sharp Aggravating Factor(s): Movement Alleviating Factor(s): Nothing Associated Signs and Symptoms: Positive: Back Pain. Negative: Fever, Cough, Chest Pain, Dizzy, Constipation, Urinary Symptoms, Vaginal Discharge, Nausea, Vomiting, Diarrhea - Risk Factors Ectopic Risk Factor: Negative Ovarian Torsion Risk Factor: Negative Allergies/Adverse Reactions: Allergies Allergy/AdvReac Type Severity Reaction Status Date / Time Apple Allergy Severe Swelling Verified 01/09/17 12:07 Amoxicillin Allergy Intermediate Hives Verified 01/09/17 12:07 Morphine Allergy Intermediate Hives Verified 01/09/17 12:07 Penicillins Allergy Intermediate Hives Verified 01/09/17 12:07 SEAWEED SOAP Allergy Hives Uncoded 01/09/17 12:07 PMH/Surg Hx/FS Hx/Imm Hx Previously Healthy: Yes Cardiovascular History: Hypertension Psychological History: Anxiety, Depression Other History Of: Negative For: Anticoagulant Therapy - Surgical History Surgical History: Yes Surgery Procedure, Year, and Place: Concurrent gastric bypass, cholecystectomy, and oopharectomy (pt unsure which ovary) in 1996. Abdominal surgeries for scar tissue in 2003 and 2008. Hand, foot, and knee orthopedic surgery. . CHOLECYSTECTOMY. hernia repair 10/15/15 - Family History Known Family History: Positive: Cardiac Disease, Diabetes, Other - Depression Family History: Depression, - Social History Occupation: Employed Part-time Lives: With Family Alcohol Use: None Substance Use Type: None, Prescribed Substance Use Comment - Amount & Last Used: oxycodone 3-325 Smoking Status (MU): Never Smoked Tobacco - Immunization History Most Recent Tetanus Shot: season Review of Systems Constitutional: Negative Skin: Negative Eyes: Negative ENT: Negative Respiratory: Negative Cardiovascular: Negative Gastrointestinal: Abdominal Pain - left upper quadrant abdominal pain Genitourinary: Negative Motor: Negative Neurovascular: Negative Musculoskeletal: Other: - lower back pain with muscle spasm Neurological: Negative Psychological: Negative All Other Systems Reviewed And Are Negative: Yes Physical Exam Triage Information Reviewed: Yes Appearance: Well-Appearing, No Pain Distress, Well-Nourished, Obese Vital Signs: Initial Vital Signs Temp 97.3 F 01/09/17 12:00 Pulse 74 01/09/17 12:00 Resp 18 01/09/17 12:00 BP 131/100 01/09/17 12:00 Pulse Ox 100 01/09/17 12:00 Vital Signs Reviewed: Yes Eye Exam: Normal Eyes: Positive: Conjunctiva Clear - PERRLA, EOMI, fundi grossly normal ENT Exam: Normal ENT: Positive: Normal ENT inspection, Hearing grossly normal, Pharynx normal, TMs normal Dental Exam: Normal Neck exam: Normal Neck: Positive: Supple, Nontender, No Lymphadenopathy Respiratory Exam: Normal Respiratory: Positive: Chest non-tender, Lungs clear, Normal breath sounds Cardiovascular Exam: Normal Cardiovascular: Positive: RRR, No Murmur, Pulses Normal, Brisk Capillary Refill Abdominal Exam: Normal Abdomen Description: Positive: No Organomegaly, Soft, Other: - mild tenderness on palpation over the LUQ,. Negative: CVA Tenderness (R), CVA Tenderness (L) Bowel Sounds: Positive: Present Musculoskeletal Exam: Normal Musculoskeletal: Positive: Strength Intact, ROM Intact, No Edema, Other: - BACK : Patient walked into the urgent care room with symmetric ambulation, No signs of limping, antalgic, able to bear weight. No signs of trauma, oint tenderness at the level of L3-L4 w.o any swelling. Point tenderness at the paraspinal muscle at the same level. No masses palpated. No CVAT, no flank ecchymosis . No sacroiliac notch tenderness, No saddle anesthesia. ROM: flexion/ extension/ lateral bending and rotation, causes pain Straight Leg Raise: negative. Patellar reflexes: brisk, symmetric Muscle strength lower extremities. Dorsiflexion/ plantar flexion of ankles. Heel/ toe walk. pulses and wnl.Rectal : Patient refused the exam. sensation and capillary refill intact. Neurological Exam: Normal Psychological Exam: Normal Skin Exam: Normal Abd Pain Female Course/Dx - Course Course Of Treatment: 51 y/o female presents to the urgent care c/o of pulling a muscle in his lower back and on the left side of the abdomen since 01/07/2017. Pt states she has mild CRUZ and feels hot and cold w/ decrease appetite. Pt reports she went to the ER with similar symptoms and was RX Naproxen and Robaxin and her symptoms are not improving. Pt states her pain 10/10 specially with movement. She states her PCP Dr Chopra has Rx oxycodon before for her back pain and her elio resolves.Pt PMHX of Degenerative disease, scoliosis, Abdominal hernia repair in 2016, gastric bypass, cholecystectomy. Pt denies urinary or fecal incontinenece, saddle anesthesia, Fever, SOB, chest pain, N/V/D. Pt requests an note for work. Hx obtained. BACK: Patient walked into the urgent care room with symmetric ambulation, No signs of limping, antalgic, able to bear weight. No signs of trauma, oint tenderness at the level of L3-L4 w.o any swelling. Point tenderness at the paraspinal muscle at the same level. No masses palpated. No CVAT, no flank ecchymosis . No sacroiliac notch tenderness, No saddle anesthesia. ROM: flexion/ extension/ lateral bending and rotation, causes pain. Straight Leg Raise: negative. Patellar reflexes: brisk, symmetric Muscle strength lower extremities. Dorsiflexion/ plantar flexion of ankles. Heel / toe walk. pulses and wnl.Rectal: Patient refused the exam. sensation and capillary refill intact. Abdomen: Mild tenderness on the LUQ. Pt stated it felt more like a muscular pain. Pt's I-stoped reports states pt has been given Oxycodone on 11/17/2016. Pt gieven Toradol inj by the nurse. Pt tolerated well Im inj and pain decreae 11/25. Pt decline blood work and abdominal CT on 2016 at the ER. Pt advised to go to the ER for fruther evaluation on her LUQ abdominal pain. Pt declined. UA ordered: results: +ketones. r/o UTI or kidney stones. Pt Rx Ketorolac PO to alleviate symptoms and advised to continue taking Robaxin and wear a back support. Pt strongly advised that if abdominal pain increases and fever, N/V developes to immediately go to the ER. To F/u with Dr Chopra tomorrow for further evaluation and treatment on her back pain. Also given GI DR referral .Pt understood and agreed - Differential Dx/Diagnosis Differential Diagnosis: Bowel Obstruction, Constipation, Diverticulitis, Peptic Ulcer Disease, Renal Colic, Urinary Tract Infection, Other - lumbago, muscle spasm, Provider Diagnoses: 1-acute back pain. 2- abdominal pain Discharge - Discharge Plan Condition: Stable Disposition: HOME Prescriptions: Ketorolac TAB * [Toradol TAB *] 10 mg PO Q6H #20 tab Patient Education Materials: Low Back Strain (ED), Acute Abdominal Pain (ED) Forms: *Work Release Referrals: Silva Chopra MD [Primary Care Provider] - 1 Day Yasmani Us MD [Medical Doctor] - As Soon As Possible Additional Instructions: Please take medications as instructed to alleviate symptoms. Stop the Naproxen and start the Toradol which is working for your pain. If abdominal pain persists w/ nausea and vomiting please go Immediately to the ER for further evaluation and treatment. Otherwise f/u with your PCP tomorrow for further management or f/u with DR Us GI specialist.
== END 2017-01-09 14:20 | disposition home or self-care (01) ==
LOC: UCEAST 11:53
DX: M54.9 Dorsalgia, unspecified (principal); R10.12 Left upper quadrant pain; I10 Essential (primary) hypertension; F41.9 Anxiety disorder, unspecified; F32.9 Major depressive disorder, single episode, unspecified; Z98.84 Bariatric surgery status; Z90.49 Acquired absence of other specified parts of digestive tract; Z88.3 Allergy status to other anti-infective agents; Z88.5 Allergy status to narcotic agent; Z88.0 Allergy status to penicillin; Z91.013 Allergy to seafood
CPT/HCPCS: 81003; 90472; 96372; 99212; G0463; J1885

== ENCOUNTER 2017-03-28 10:28 | Emergency (ER) | payer OTHER ==
[2017-03-28 14:33] LABS: Hematocrit 40 % (35-47); Mean Corpuscular HGB Conc 33 g/dl (31-36); Mean Corpuscular Hemoglobin 29 pg (27-31); Mean Corpuscular Volume 89 fL (80-97); Mean Platelet Volume 7 um3 (7.4-10.4); Red Blood Count 4.46 10^6/ul (4.0-5.4); Red Cell Distribution Width 14 % (10.5-15); White Blood Count 5.1 10^3/ul (3.5-10.8)
[2017-03-28 14:51] LABS: ALT 11 U/L (7-52); AST 15 U/L (13-39); Albumin 3.9 g/dL (3.2-5.2); Alkaline Phosphatase 111 U/L (34-104); Anion Gap 6 mmol/L (2-11); BUN/Creatinine Ratio 17.6 (8-20); Blood Urea Nitrogen 12 mg/dL (6-24); C Reactive Protein < 1.00 mg/L (< 5.00); CO2 Carbon Dioxide 24 mmol/L (22-32); Calcium 9.2 mg/dL (8.6-10.3); Chloride 108 mmol/L (101-111); EGFR African American 116.4 (>60); EGFR Non-African American 90.5 (>60); Globulin 2.7 g/dL (2-4); Glucose 107 mg/dL (70-100); Lipase 27 U/L (11.0-82.0); Potassium 4.1 mmol/L (3.5-5.0); Sodium 138 mmol/L (133-145); Total Protein 6.6 g/dL (6.4-8.9)
--- NOTE | 2017-03-28 14:52 | RAD ---
HISTORY: Pain and vomiting COMPARISONS: None relevant VIEWS: Frontal views of the abdomen. FINDINGS: BOWEL: There is a nonobstructive bowel gas pattern. There is a moderate amount of stool within the colon. CALCULI: There are no abnormal calculi. BONES AND SOFT TISSUES: There are no osseous abnormalities. OTHER FINDINGS: The lung bases are clear. There is no subphrenic gas. Surgical clips are noted in the right upper quadrant. IMPRESSION: NONOBSTRUCTIVE BOWEL GAS PATTERN.
--- NOTE | 2017-03-28 14:52 | RAD ---
INDICATION: Left foot injury. TECHNIQUE: 3 views of the left foot were obtained. FINDINGS: The bones are in normal alignment. No fracture is seen. Joint spaces appear maintained. IMPRESSION: NO EVIDENCE FOR FRACTURE, IF THE PATIENT'S SYMPTOMS PERSIST, RECOMMEND FOLLOW-UP IMAGING.
[2017-03-28 17:04] VITALS: BP 161/87
--- NOTE | 2017-03-28 21:05 | ED ---
Jennifer Bobby Thomas, scribed for Jairo Patricia MD on 03/28/17 at 1355 . Abdominal Pain/Female - HPI Summary HPI Summary: The pt is a 51 y/o F presenting to the ED c/o lower abd pain that has been constant for the last two days. The pain is described as sharp. The pain is rated 10/10. The pain is aggravated and alleviated by nothing. The patient was treated the pain with her normal medications. Pt additionally c/o nausea and CRUZ for the last week. She says that she vomits after eating. She is on Zofran, Immitrex, ibuprofen, and her other medications, PSHx of a hiatal hernia repair. - History of Current Complaint Chief Complaint: EDAbdPain Stated Complaint: LT ABD PAIN/HEADACHE/TOE COMPLAINT Time Seen by Provider: 03/28/17 13:25 Hx Obtained From: Patient Hx Last Menstrual Period: 2005 Onset/Duration: Lasting Days - onset two days ago, Still Present Timing: Constant Pain Intensity: 10 Pain Scale Used: 0-10 Numeric Location: Other - Lower abd Aggravating Factor(s): Nothing Alleviating Factor(s): Nothing Associated Signs and Symptoms: Positive: Nausea - constant, Vomiting - after eating, Other: - CRUZ Allergies/Adverse Reactions: Allergies Allergy/AdvReac Type Severity Reaction Status Date / Time Apple Allergy Severe Swelling Verified 03/28/17 10:31 Amoxicillin Allergy Intermediate Hives Verified 03/28/17 10:31 Morphine Allergy Intermediate Hives Verified 03/28/17 10:31 Penicillins Allergy Intermediate Hives Verified 03/28/17 10:31 SEAWEED SOAP Allergy Hives Uncoded 03/28/17 10:31 PMH/Surg Hx/FS Hx/Imm Hx Previously Healthy: No Endocrine/Hematology History: Denies: Hx Anticoagulant Therapy, Hx Blood Disorders, Hx Blood Transfusions, Hx Bone Marrow Disease, Hx Diabetes, Hx Systemic Lupus Erythematosus, Hx Sickle Cell Disease, Hx Thyroid Disease, Hx Anemia, Hx Unexplained Bleeding, Other Endocrine/Hematological Disorders Cardiovascular History: Reports: Other Cardiovascular Problems/Disorders - Heart Murmur Denies: Hx Aneurysm, Hx Angina, Hx Angioplasty, Hx Atrial Fibrillation, Hx Auto Implanted Cardiovert Defib, Hx Cardiac Arrest, Hx Cardiomegaly, Hx Congenital Heart Disease, Hx Congestive Heart Failure, Hx Coronary Artery Disease, Hx Deep Vein Thrombosis, Hx Embolism, Hx Hypercholesterolemia, Hx Hypotension, Hx Hypertension, Hx Myocardial Infarction, Hx Pacemaker/ICD, Hx Peripheral Vascular Disease, Hx Rheumatic Fever, Hx Syncope, Hx Valvular Heart Disease Respiratory History: Reports: Hx Asthma, Hx Sleep Apnea Denies: Hx Bronchopulmonary Dysplasia, Hx Chronic Bronchitis, Hx Chronic Obstructive Pulmonary Disease (COPD), Hx Cystic Fibrosis, Hx Lung Cancer, Hx Pleural Effusion, Hx Pneumonia, Hx Pulmonary Edema, Hx Pulmonary Embolism, Hx Seasonal Allergies, Other Respiratory Problems/Disorders GI History: Reports: Hx Hiatal Hernia, Hx Irritable Bowel Denies: Hx Cirrhosis, Hx Crohn's Disease, Hx Diverticulosis, Hx Gall Bladder Disease, Hx Gastroesophageal Reflux Disease, Hx Gastrointestinal Bleed, Hx Jaundice, Hx Obstructive Bowel, Hx Ileostomy, Hx Pyloric Stenosis, Hx Ulcer, Hx Urosepsis, Other GI Disorders History: Reports: Other Problems/Disorders - Herpes I Denies: Hx Acute Renal Failure, Hx Benign Prostatic Hyperplasia, Hx Chronic Renal Failure, Hx Dialysis, Hx Kidney Infection, Hx Kidney Stones, Hx Renal Disease Musculoskeletal History: Reports: Hx Orthopedic Injury - ankle sprains on right , Other Musculoskeletal History - Hand, foot, and knee surgeries Sensory History: Reports: Hx Contacts or Glasses Denies: Hx Cataracts, Hx Eye Injury, Hx Eye Prosthesis, Hx Glaucoma, Hx Legally Blind, Hx Macular Degeneration, Hx Vision Problem, Hx Deafness, Hx Hearing Aid, Hx Hearing Problem, Other Sensory Impairments Opthamlomology History: Reports: Hx Contacts or Glasses Denies: Hx Cataracts, Hx Eye Injury, Hx Eye Prosthesis, Hx Glaucoma, Hx Legally Blind, Hx Macular Degeneration, Hx Vision Problem, Other Sensory Impairments Neurological History: Denies: Hx CVA, Hx Dementia, Hx Developmental Delay, Hx Headaches, Hx Migraine, Hx Nerve Disease, Hx Peripheral Neuropathy, Hx Seizures, Hx Spinal Cord Injury, Hx Transient Ischemic Attacks (TIA), Other Neuro Impairments/ Disorders Psychiatric History: Reports: Hx Anxiety, Hx Depression - Cancer History Cancer Type, Location and Year: STOMACH CA - Surgical History Surgery Procedure, Year, and Place: Concurrent gastric bypass, cholecystectomy, and oopharectomy (pt unsure which ovary) in 1996. Abdominal surgeries for scar tissue in 2003 and 2008. Hand, foot, and knee orthopedic surgery. . CHOLECYSTECTOMY. hernia repair 10/15/15 Infectious Disease History: No Infectious Disease History: Denies: Hx Clostridium Difficile, Hx Hepatitis, Hx Human Immunodeficiency Virus (HIV), Hx of Known/Suspected MRSA, Hx Shingles, Hx Tuberculosis, Hx Known/ Suspected VRE, Hx Known/Suspected VRSA, History Other Infectious Disease, Traveled Outside the [place] in Last 30 Days - Family History Known Family History: Positive: Cardiac Disease, Diabetes, Other - Depression Family History: Depression, - Social History Alcohol Use: None Hx Substance Use: No Substance Use Type: Reports: None, Prescribed Substance Use Comment - Amount & Last Used: oxycodone 3-325 Hx Tobacco Use: No Smoking Status (MU): Never Smoked Tobacco Review of Systems Negative: Fever Positive: Abdominal Pain - lower, Vomiting, Nausea Positive: Headache All Other Systems Reviewed And Are Negative: Yes Physical Exam Triage Information Reviewed: Yes Vital Signs On Initial Exam: Initial Vitals Temp Pulse Resp BP Pulse Ox 97.1 F 81 16 138/82 100 03/28/17 10:31 03/28/17 10:31 03/28/17 10:31 03/28/17 10:31 03/28/17 10:31 Vital Signs Reviewed: Yes Appearance: Positive: Well-Appearing, No Pain Distress Skin: Positive: Warm, Skin Color Reflects Adequate Perfusion, Dry Head/Face: Positive: Normal Head/Face Inspection Eyes: Positive: Normal ENT: Positive: Normal ENT inspection Neck: Positive: Supple, Nontender Respiratory/Lung Sounds: Positive: Clear to Auscultation, Breath Sounds Present Cardiovascular: Positive: RRR Abdomen Description: Positive: Nontender, Soft Bowel Sounds: Positive: Present Musculoskeletal: Positive: Other - She is ecchymotic to the left 4th toe. Otherwise, normal. Neurological: Positive: Normal Psychiatric: Positive: Normal, Affect/Mood Appropriate Diagnostics - Vital Signs Vital Signs Temp Pulse Resp BP Pulse Ox 03/28/17 12:25 98.6 F 70 18 142/91 98 03/28/17 10:31 97.1 F 81 16 138/82 100 - Laboratory Lab Results: Lab Results 03/28/17 03/28/17 03/28/17 Range/Units 14:20 14:20 14:20 WBC 5.1 (3.5-10.8) 10^3/ul RBC 4.46 (4.0-5.4) 10^6/ul Hgb 13.0 (12.0-16.0) g/dl Hct 40 (35-47) % MCV 89 (80-97) fL MCH 29 (27-31) pg MCHC 33 (31-36) g/dl RDW 14 (10.5-15) % Plt Count 263 (150-450) 10^3/ul MPV 7 L (7.4-10.4) um3 Neut % (Auto) 58.5 (38-83) % Lymph % (Auto) 29.4 (25-47) % [place] % (Auto) 6.4 (1-9) % Eos % (Auto) 5.1 (0-6) % Baso % (Auto) 0.6 (0-2) % Absolute Neuts (auto) 3.0 (1.5-7.7) 10^3/ul Absolute Lymphs (auto) 1.5 (1.0-4.8) 10^3/ul Absolute Monos (auto) 0.3 (0-0.8) 10^3/ul Absolute Eos (auto) 0.3 (0-0.6) 10^3/ul Absolute Basos (auto) 0 (0-0.2) 10^3/ul Absolute Nucleated RBC 0.01 10^3/ul Nucleated RBC % 0.1 Sodium 138 (133-145) mmol/L Potassium 4.1 (3.5-5.0) mmol/L Chloride 108 (101-111) mmol/L Carbon Dioxide 24 (22-32) mmol/L Anion Gap 6 (2-11) mmol/L BUN 12 (6-24) mg/dL Creatinine 0.68 (0.51-0.95) mg/dL Est GFR ( Amer) 116.4 (>60) Est GFR (Non-Af Amer) 90.5 (>60) BUN/Creatinine Ratio 17.6 (8-20) Glucose 107 H (70-100) mg/dL Lactic Acid 0.8 (0.5-2.0) mmol/L Calcium 9.2 (8.6-10.3) mg/dL Total Bilirubin 0.30 (0.2-1.0) mg/dL AST 15 (13-39) U/L ALT 11 (7-52) U/L Alkaline Phosphatase 111 H (34-104) U/L C-Reactive Protein < 1.00 (< 5.00) mg/L Total Protein 6.6 (6.4-8.9) g/dL Albumin 3.9 (3.2-5.2) g/dL Globulin 2.7 (2-4) g/dL Albumin/Globulin Ratio 1.4 (1-3) Lipase 27 (11.0-82.0) U/L Result Diagrams: 03/28/17 14:20 03/28/17 14:20 Lab Statement: Any lab studies that have been ordered have been reviewed, and results considered in the medical decision making process. - Radiology Foot XR Xray Interpretation: No Acute Changes - No evidence for fracture. ED physician has reviewed this report and agrees. Radiology Interpretation Completed By: Radiologist Abdo XR Xray Interpretation: No Acute Changes - Nonobstructive bowel gas pattern. ED physician has reviewed this report and agrees. Radiology Interpretation Completed By: Radiologist Abdominal Pain Fem Course/Dx - Course Course Of Treatment: Ms. Mary had mild abdominal pain and tenderness and unremarkable W/U. - Diagnoses Provider Diagnoses: Abdominal pain, Toe injury Discharge - Discharge Plan Condition: Stable Disposition: HOME Prescriptions: oxyCODONE/Acetamin 5/325 MG* [Percocet 5/325 TAB*] 1 tab PO Q6H PRN #10 tab MDD 4 PRN Reason: Pain Patient Education Materials: Abdominal Pain (ED) Referrals: Silva Chopra MD [Primary Care Provider] - 3 Days [facility] [Outside] Additional Instructions: Follow up with your primary care provider in 2-3 days. If you do not have one, you can use the [facility] service to find one. Return to the emergency department for any new or worsening symptoms. The documentation as recorded by the Jennifer lane Thomas accurately reflects the service I personally performed and the decisions made by , Jairo Patricia MD.
== END 2017-03-28 16:09 | disposition home or self-care (01) ==
LOC: ED 10:28
DX: R10.9 Unspecified abdominal pain (principal); S99.922A Unspecified injury of left foot, initial encounter; R11.2 Nausea with vomiting, unspecified; X58.XXXA Exposure to other specified factors, initial encounter; Y93.9 Activity, unspecified; Y92.9 Unspecified place or not applicable
CPT/HCPCS: 36415; 74020; 80053; 83605; 83690; 85025; 86140; 99283

== ENCOUNTER 2017-03-30 11:38 | Emergency (ER) | payer OTHER ==
[2017-03-30 11:50] VITALS: BP 129/82
--- NOTE | 2017-03-30 12:04 | UC ---
Complaint Female HPI - HPI Summary HPI Summary: Patient presents with two day onset complaints of urinary urgency, frequency and dysuria, flank and pelvic pain. She reports feeling clammy, and at times feels she has been running a fever. Denies nausea, vomiting, new onset constipation or diarrhea, abnormal vaginal discharge or bleeding. Reports one episode on incontinence of urine with coughing, no incontinence of bowel or saddle anesthesia. Denies any new activity or trauma that would explain back pain. - History Of Current Complaint Chief Complaint: UCGeneralIllness Stated Complaint: FEVER Time Seen by Provider: 03/30/17 11:51 Hx Obtained From: Patient Hx Last Menstrual Period: 2005 ?: No Onset/Duration: Gradual Onset, Lasting Days Timing: Intermittent, Lasting Days Severity Initially: Moderate Severity Currently: Moderate Character: Cramping Aggravating Factor(s): Urination Alleviating Factor(s): Nothing Associated Signs And Symptoms: Positive: Back Pain - Risk Factors Ectopic Risk Factor: Negative Ovarian Torsion Risk Factor: Negative - Allergies/Home Medications Allergies/Adverse Reactions: Allergies Allergy/AdvReac Type Severity Reaction Status Date / Time Apple Allergy Severe Swelling Verified 03/30/17 11:42 Amoxicillin Allergy Intermediate Hives Verified 03/30/17 11:42 Morphine Allergy Intermediate Hives Verified 03/30/17 11:42 Penicillins Allergy Intermediate Hives Verified 03/30/17 11:42 bees Allergy Hives Uncoded 03/30/17 11:42 SEAWEED SOAP Allergy Hives Uncoded 03/30/17 11:42 PMH/Surg Hx/FS Hx/Imm Hx Previously Healthy: Yes Other History Of: Negative For: Anticoagulant Therapy - Surgical History Surgical History: Yes Surgery Procedure, Year, and Place: Concurrent gastric bypass, cholecystectomy, and oopharectomy (pt unsure which ovary) in 1996. Abdominal surgeries for scar tissue in 2003 and 2008. Hand, foot, and knee orthopedic surgery. . CHOLECYSTECTOMY. hernia repair 10/15/15 - Family History Known Family History: Positive: Cardiac Disease, Diabetes, Other - Depression Family History: Depression, - Social History Occupation: Unemployed Lives: Alone Alcohol Use: None Substance Use Type: Prescribed Substance Use Comment - Amount & Last Used: oxycodone 3-325 Smoking Status (MU): Never Smoked Tobacco - Immunization History Most Recent Tetanus Shot: 2015/2016 season Review of Systems Constitutional: Negative Skin: Negative Eyes: Negative ENT: Negative Respiratory: Negative Cardiovascular: Negative Gastrointestinal: Abdominal Pain Genitourinary: Dysuria, Frequency, Urgency Motor: Negative Neurovascular: Negative Musculoskeletal: Other: - low back pain Neurological: Negative Psychological: Negative All Other Systems Reviewed And Are Negative: Yes Physical Exam Triage Information Reviewed: Yes Vital Signs: Initial Vital Signs Temp 98.3 F 03/30/17 11:44 Pulse 74 03/30/17 11:44 Resp 16 03/30/17 11:44 BP 129/82 03/30/17 11:44 Pulse Ox 100 03/30/17 11:44 Eye Exam: Normal ENT Exam: Normal Dental Exam: Normal Neck exam: Normal Neck: Positive: 1 Respiratory Exam: Normal Cardiovascular Exam: Normal Abdominal Exam: Normal Musculoskeletal Exam: Normal Neurological Exam: Normal Psychological Exam: Normal Skin Exam: Normal Complaint Female Dx - Course Course Of Treatment: Patient presents with complaints of urinary urgency, frequency and dysuria, abdominal and flank pain. VSS and she has a nontoxic appearance, and is afebrile. UA + for leuks, and was treated with macrobid and given pyridium 200 mg in the clinic. She was disacharged with instruction to follow up if her symtpoms persist past the treatment. She verbalzied understanding and was in agreement with the discharge plan. - Differential Dx/Diagnosis Differential Diagnosis/HQI/PQRI: Urinary Tract Infection Provider Diagnoses: uti Discharge - Discharge Plan Condition: Stable Disposition: HOME Prescriptions: Nitrofurantoin Monohyd Macro [Macrobid] 100 mg PO BID #10 cap Patient Education Materials: Urinary Tract Infection in Women (ED) Referrals: Silva Chopra MD [Primary Care Provider] - Additional Instructions: If your symptoms persist past the time you complete the antibiotic you should be re-evaluated.
[2017-03-30] MEDS ORDERED: Phenazopyridine TAB* 100 MG PO ONE (12:18)
--- NOTE | 2017-04-01 07:20 | UC ---
Progress - Progress Note Progress Note: Notify patient she does not have a UTI stop macrobid recheck if still ill
== END 2017-03-30 12:24 | disposition home or self-care (01) ==
LOC: UCEAST 11:38
DX: R39.15 Urgency of urination (principal); Z88.6 Allergy status to analgesic agent; Z88.1 Allergy status to other antibiotic agents; Z88.0 Allergy status to penicillin
CPT/HCPCS: 81003; 87086; 99212; A9270-GY; G0463

== ENCOUNTER 2017-03-30 23:13 | Emergency (ER) | payer OTHER ==
[2017-03-30] MEDS ORDERED: LORazepam INJ* 2 MG/ML 1 ML VIAL IV PUSH ONE (23:49)
[2017-03-31 00:08] LABS: Hematocrit 38 % (35-47); Hemoglobin 12.8 g/dl (12.0-16.0); Mean Corpuscular HGB Conc 34 g/dl (31-36); Mean Corpuscular Hemoglobin 29 pg (27-31); Mean Corpuscular Volume 88 fL (80-97); Mean Platelet Volume 7 um3 (7.4-10.4); Red Blood Count 4.38 10^6/ul (4.0-5.4); Red Cell Distribution Width 14 % (10.5-15); White Blood Count 6.9 10^3/ul (3.5-10.8)
[2017-03-31 00:23] LABS: BUN/Creatinine Ratio 17.1 (8-20); Calcium 9.6 mg/dL (8.6-10.3); EGFR African American 93.8 (>60); EGFR Non-African American 72.9 (>60); Globulin 2.8 g/dL (2-4); Potassium 4.1 mmol/L (3.5-5.0); Total Bilirubin 0.3 mg/dL (0.2-1.0); Total Protein 6.8 g/dL (6.4-8.9)
[2017-03-31] MEDS ORDERED: LORazepam TAB(*) 1 MG PO ONE (00:44)
[2017-03-31 01:02] VITALS: BP 122/72
--- NOTE | 2017-03-31 01:09 | ED ---
Allergic Reaction/Systemic - HPI Summary HPI Summary: Patient presents to the ED stating she is having a allergic reaction/anxiety attack from a new medication which she was just prescribed. She was seen at for shakiness and concern over a recent mesh placement x 3 weeks ago by a physician in [place]. Found to have a UTI and prescribed macrobid. She denies abdominal pain. However, she states she is having pain all over and a "tightness" in her muscles. She denies fevers, but endorses sweats and chills. She notes to severe anxiety. Denies urinary symptoms at this time. No hives , rashes or throat symptoms are of concern. - History of Current Complaint Chief Complaint: EDAllergicReaction Time Seen by Provider: 03/30/17 23:43 Hx Obtained From: Patient Hx Last Menstrual Period: 2005 Onset/Duration: Sudden Onset Timing: Constant Severity Initially: Mild Severity Currently: Mild Pain Intensity: 2 Pain Scale Used: 0-10 Numeric Aggravating Factor(s): Nothing Alleviating Factor(s): Nothing Associated Signs And Symptoms: Positive: Other: - muscle tightness - Related Hx Possible Reaction To: Medications - Allergies/Home Medications Allergies/Adverse Reactions: Allergies Allergy/AdvReac Type Severity Reaction Status Date / Time Apple Allergy Severe Swelling Verified 03/30/17 23:21 Amoxicillin Allergy Intermediate Hives Verified 03/30/17 23:21 Morphine Allergy Intermediate Hives Verified 03/30/17 23:21 Penicillins Allergy Intermediate Hives Verified 03/30/17 23:21 bees Allergy Hives Uncoded 03/30/17 23:21 SEAWEED SOAP Allergy Hives Uncoded 03/30/17 23:21 PMH/Surg Hx/FS Hx/Imm Hx Previously Healthy: Yes Endocrine/Hematology History: Denies: Hx Anticoagulant Therapy, Hx Blood Disorders, Hx Blood Transfusions, Hx Bone Marrow Disease, Hx Diabetes, Hx Systemic Lupus Erythematosus, Hx Sickle Cell Disease, Hx Thyroid Disease, Hx Anemia, Hx Unexplained Bleeding, Other Endocrine/Hematological Disorders Cardiovascular History: Reports: Other Cardiovascular Problems/Disorders - Heart Murmur Denies: Hx Aneurysm, Hx Angina, Hx Angioplasty, Hx Atrial Fibrillation, Hx Auto Implanted Cardiovert Defib, Hx Cardiac Arrest, Hx Cardiomegaly, Hx Congenital Heart Disease, Hx Congestive Heart Failure, Hx Coronary Artery Disease, Hx Deep Vein Thrombosis, Hx Embolism, Hx Hypercholesterolemia, Hx Hypotension, Hx Hypertension, Hx Myocardial Infarction, Hx Pacemaker/ICD, Hx Peripheral Vascular Disease, Hx Rheumatic Fever, Hx Syncope, Hx Valvular Heart Disease Respiratory History: Reports: Hx Asthma, Hx Sleep Apnea Denies: Hx Bronchopulmonary Dysplasia, Hx Chronic Bronchitis, Hx Chronic Obstructive Pulmonary Disease (COPD), Hx Cystic Fibrosis, Hx Lung Cancer, Hx Pleural Effusion, Hx Pneumonia, Hx Pulmonary Edema, Hx Pulmonary Embolism, Hx Seasonal Allergies, Other Respiratory Problems/Disorders GI History: Reports: Hx Hiatal Hernia, Hx Irritable Bowel Denies: Hx Cirrhosis, Hx Crohn's Disease, Hx Diverticulosis, Hx Gall Bladder Disease, Hx Gastroesophageal Reflux Disease, Hx Gastrointestinal Bleed, Hx Jaundice, Hx Obstructive Bowel, Hx Ileostomy, Hx Pyloric Stenosis, Hx Ulcer, Hx Urosepsis, Other GI Disorders History: Reports: Other Problems/Disorders - Herpes I Denies: Hx Acute Renal Failure, Hx Benign Prostatic Hyperplasia, Hx Chronic Renal Failure, Hx Dialysis, Hx Kidney Infection, Hx Kidney Stones, Hx Renal Disease Musculoskeletal History: Reports: Hx Orthopedic Injury - ankle sprains on right , Other Musculoskeletal History - Hand, foot, and knee surgeries Sensory History: Reports: Hx Contacts or Glasses Denies: Hx Cataracts, Hx Eye Injury, Hx Eye Prosthesis, Hx Glaucoma, Hx Legally Blind, Hx Macular Degeneration, Hx Vision Problem, Hx Deafness, Hx Hearing Aid, Hx Hearing Problem, Other Sensory Impairments Opthamlomology History: Reports: Hx Contacts or Glasses Denies: Hx Cataracts, Hx Eye Injury, Hx Eye Prosthesis, Hx Glaucoma, Hx Legally Blind, Hx Macular Degeneration, Hx Vision Problem, Other Sensory Impairments Neurological History: Denies: Hx CVA, Hx Dementia, Hx Developmental Delay, Hx Headaches, Hx Migraine, Hx Nerve Disease, Hx Peripheral Neuropathy, Hx Seizures, Hx Spinal Cord Injury, Hx Transient Ischemic Attacks (TIA), Other Neuro Impairments/ Disorders Psychiatric History: Reports: Hx Anxiety, Hx Depression - Cancer History Cancer Type, Location and Year: STOMACH CA - Surgical History Surgery Procedure, Year, and Place: Concurrent gastric bypass, cholecystectomy, and oopharectomy (pt unsure which ovary) in 1996. Abdominal surgeries for scar tissue in 2003 and 2008. Hand, foot, and knee orthopedic surgery. . CHOLECYSTECTOMY. hernia repair 10/15/15 - Immunization History Hx Pertussis Vaccination: No Immunizations Up to Date: Unable to Obtain/Confirm Infectious Disease History: No Infectious Disease History: Reports: Hx Hepatitis - Hep B Denies: Hx Clostridium Difficile, Hx Human Immunodeficiency Virus (HIV), Hx of Known/Suspected MRSA, Hx Shingles, Hx Tuberculosis, Hx Known/Suspected VRE, Hx Known/Suspected VRSA, History Other Infectious Disease, Traveled Outside the [place] in Last 30 Days - Family History Known Family History: Positive: Cardiac Disease, Diabetes, Other - Depression Family History: Depression, - Social History Occupation: Employed Full-time Lives: With Family Alcohol Use: None Hx Substance Use: No Substance Use Type: Reports: Prescribed Substance Use Comment - Amount & Last Used: oxycodone 3-325 Hx Tobacco Use: No Smoking Status (MU): Never Smoked Tobacco Review of Systems Constitutional: Negative Negative: Fever, Chills, Fatigue Eyes: Negative Cardiovascular: Negative Negative: Palpitations, Chest Pain Negative: Shortness Of Breath, Cough Genitourinary: Negative Positive: no symptoms reported, see HPI Positive: Myalgia Positive: Anxious All Other Systems Reviewed And Are Negative: Yes Physical Exam Triage Information Reviewed: Yes Vital Signs On Initial Exam: Initial Vitals Temp Pulse Resp BP Pulse Ox 97.1 F 94 22 140/103 97 03/30/17 23:18 03/30/17 23:18 03/30/17 23:18 03/30/17 23:18 03/30/17 23:18 Vital Signs Reviewed: Yes Appearance: Positive: Ill-Appearing Skin: Positive: Warm, Diaphoretic Head/Face: Positive: Normal Head/Face Inspection Eyes: Positive: EOMI, LINDA, Conjunctiva Clear Neck: Positive: Supple, No Lymphadenopathy Respiratory/Lung Sounds: Positive: Breath Sounds Present Cardiovascular: Positive: RRR Musculoskeletal: Positive: Strength/ROM Intact Neurological: Positive: Sensory/Motor Intact, Alert, Oriented to Person Place, Time, Speech Normal Psychiatric: Positive: Anxious - [place] Coma Scale Coma Scale Total: 15 Diagnostics - Vital Signs Vital Signs Temp Pulse Resp BP Pulse Ox 03/31/17 01:00 89 18 122/72 97 03/31/17 00:59 18 03/31/17 00:22 18 03/30/17 23:18 97.1 F 94 22 140/103 97 - Laboratory Lab Results: Lab Results 03/31/17 03/31/17 03/31/17 Range/Units 00:00 00:00 00:00 WBC 6.9 (3.5-10.8) 10^3/ul RBC 4.38 (4.0-5.4) 10^6/ul Hgb 12.8 (12.0-16.0) g/dl Hct 38 (35-47) % MCV 88 (80-97) fL MCH 29 (27-31) pg MCHC 34 (31-36) g/dl RDW 14 (10.5-15) % Plt Count 260 (150-450) 10^3/ul MPV 7 L (7.4-10.4) um3 Neut % (Auto) 59.8 (38-83) % Lymph % (Auto) 26.6 (25-47) % [place] % (Auto) 8.9 (1-9) % Eos % (Auto) 4.0 (0-6) % Baso % (Auto) 0.7 (0-2) % Absolute Neuts (auto) 4.1 (1.5-7.7) 10^3/ul Absolute Lymphs (auto) 1.8 (1.0-4.8) 10^3/ul Absolute Monos (auto) 0.6 (0-0.8) 10^3/ul Absolute Eos (auto) 0.3 (0-0.6) 10^3/ul Absolute Basos (auto) 0 (0-0.2) 10^3/ul Absolute Nucleated RBC 0 10^3/ul Nucleated RBC % 0 Sodium 137 (133-145) mmol/L Potassium 4.1 (3.5-5.0) mmol/L Chloride 106 (101-111) mmol/L Carbon Dioxide 24 (22-32) mmol/L Anion Gap 7 (2-11) mmol/L BUN 14 (6-24) mg/dL Creatinine 0.82 (0.51-0.95) mg/dL Est GFR ( Amer) 93.8 (>60) Est GFR (Non-Af Amer) 72.9 (>60) BUN/Creatinine Ratio 17.1 (8-20) Glucose 103 H (70-100) mg/dL Lactic Acid 1.0 (0.5-2.0) mmol/L Calcium 9.6 (8.6-10.3) mg/dL Total Bilirubin 0.30 (0.2-1.0) mg/dL AST 16 (13-39) U/L ALT 11 (7-52) U/L Alkaline Phosphatase 114 H (34-104) U/L Myoglobin 24.7 (14.3-65.8) ng/mL Total Protein 6.8 (6.4-8.9) g/dL Albumin 4.0 (3.2-5.2) g/dL Globulin 2.8 (2-4) g/dL Albumin/Globulin Ratio 1.4 (1-3) Result Diagrams: 03/31/17 00:00 03/31/17 00:00 Lab Statement: Any lab studies that have been ordered have been reviewed, and results considered in the medical decision making process. Allergic Reaction Course/Dx - Course Course Of Treatment: Labs obtained. WNL. Patient is given cipro and encouraged to DC macrobid. She agrees. She is encouraged to then follow up with her PCP about her anxiety and her possible mesh placement. No abdominal pain on exam. ativan given in Ed with effect. patient states she is much calmer now and would like to go home. Likely just an anxiety attack and not related to the macrobid, but will swtich the abx anyway to alleviate any concern. - Diagnoses Differential Diagnosis/HQI/PQRI: Positive: Other - allergy Provider Diagnoses: Anxiety Discharge - Discharge Plan Condition: Stable Disposition: HOME Prescriptions: Ciprofloxacin TAB* [Cipro 500 MG TAB*] 500 mg PO BID #10 tab MDD 2 Patient Education Materials: Urinary Tract Infection in Women (ED), Anxiety (ED ) Referrals: Kalyani Krause MD [Primary Care Provider] - Additional Instructions: Please follow up with your PCP I have switched your antibiotic to Ciprofloxacin Take this medication twice daily for 5 days
== END 2017-03-31 01:00 | disposition home or self-care (01) ==
LOC: ED 23:13
DX: F41.9 Anxiety disorder, unspecified (principal)
CPT/HCPCS: 36415; 80053; 83605; 83874; 85025; 96374; 99283; A9270-GY; J2060

== ENCOUNTER 2018-09-27 11:00 | Emergency (ER) | payer OTHER ==
[2018-09-27 12:43] LABS: Influenza A Molecular NEGATIVE (Negative); Influenza B Molecular NEGATIVE (Negative)
[2018-09-27] MEDS ORDERED: Ondansetron ODT TAB* 4 MG PO ONE (13:00)
[2018-09-27] MEDS ORDERED: Acetaminophen TAB* 325 MG PO ONE (13:00)
[2018-09-27 13:16] VITALS: BP 139/93
--- NOTE | 2018-09-27 13:34 | UC ---
Nausea/Vomiting/Diarrhea HPI - HPI Summary HPI Summary: 53 y/o female presents to the urgent care c/o diarrhea, CRUZ, body aches, Nausea for the past 2 days. Pt reports 4 episodes of watery diarrhea each day. Today she woke up w/ nauseas, but has not vomited. She has decrease appetite, but has been drinking fluids. Pt reports mild cramping abdominal pain which is relief by the watery diarrhea. She denies eating outside, recent travel, or taking antibiotics recently. CRUZ is mild 3/10 with mild sinus congestion. Pt denies fever, SOB, dizziness, chest pain, vomiting, blood in the stool, or urinary symptoms. - History of Current Complaint Chief Complaint: UCGI Stated Complaint: ABDOMINAL COMPLAINT Time Seen by Provider: 09/27/18 12:36 Hx Obtained From: Patient Hx Last Menstrual Period: 2005 Onset/Duration: Gradual Onset, Lasting Days - 2 days, Still Present Timing: Intermittent Episodes Lasting: Severity Initially: Mild Severity Currently: Mild Pain Intensity: 5 Pain Scale Used: 0-10 Numeric Location: Diffuse - mild stomach aching relief w/ diarrhea Character: Dull, Cramping - relief w/ diarrhea Alleviating Factor(s): Bowel Movement, OTC Analgesics Nausea/Vomiting Presence: Nauseated Diarrhea Presence: Yes Diarrhea Frequency: Every 3-4 hours Diarrhea Duration: 36-48 hours Diarrhea Characteristics: Watery - Risk Factors Influenza Risk Factors: Negative Surgical Obstruction Risk Factor(s): Negative - Allergies/Home Medications Allergies/Adverse Reactions: Allergies Allergy/AdvReac Type Severity Reaction Status Date / Time amoxicillin Allergy Intermediate Hives Verified 09/27/18 11:20 apple Allergy Intermediate Hives Verified 09/27/18 11:20 morphine Allergy Intermediate swelling Verified 09/27/18 11:19 itching Penicillins Allergy Intermediate Anaphylatic Verified 09/27/18 11:20 Shock bees Allergy Intermediate Hives Uncoded 09/27/18 11:20 SEAWEED SOAP Allergy Intermediate Hives Uncoded 09/27/18 11:20 Home Medications: Home Medications Cyanocobalamin TAB* [Vitamin B12 TAB*] 1,000 mcg PO DAILY 09/27/18 [History Confirmed 09/27/18] Iron 90 mg PO DAILY WITH MEAL 09/27/18 [History Confirmed 09/27/18] PMH/Surg Hx/FS Hx/Imm Hx Previously Healthy: Yes Cardiovascular History: Hypertension Respiratory History: Asthma Psychological History: Anxiety, Depression Other History Of: Negative For: Anticoagulant Therapy - Surgical History Surgical History: Yes Surgery Procedure, Year, and Place: Concurrent gastric bypass, cholecystectomy, and oopharectomy (pt unsure which ovary) in 1996. Abdominal surgeries for scar tissue in 2003 and 2008. Hand, foot, and knee orthopedic surgery. . CHOLECYSTECTOMY. hernia repair 10/15/15 - Family History Known Family History: Positive: Cardiac Disease, Diabetes, Other - Depression Family History: Depression, - Social History Occupation: Employed Full-time Lives: With Family Alcohol Use: None Substance Use Type: Prescribed Substance Use Comment - Amount & Last Used: oxycodone 3-325 Smoking Status (MU): Never Smoked Tobacco - Immunization History Most Recent Tetanus Shot: 2015/2016 season Review of Systems All Other Systems Reviewed And Are Negative: Yes Constitutional: Positive: Other - body aches Skin: Positive: Negative Eyes: Positive: Negative ENT: Positive: Sinus Congestion Respiratory: Positive: Negative Cardiovascular: Positive: Negative Gastrointestinal: Positive: Diarrhea, Nausea Genitourinary: Positive: Negative Motor: Positive: Negative Neurovascular: Positive: Negative Musculoskeletal: Positive: Negative Neurological: Positive: Headache Psychological: Positive: Negative Is Patient Immunocompromised?: No Physical Exam - Summary Physical Exam Summary: Vital Signs Reviewed: Yes General:Patient is a well developed and nourished obese female who is sitting comfortable in the examining table. Patient is not in any acute respiratory distress. Eyes: Positive: Conjunctiva Clear - PERRLA, EOMI, fundi grossly normal ENT: Positive: Normal ENT inspection, Hearing grossly normal, Pharynx normal, TMs normal Neck: Positive: Supple, Nontender, No Lymphadenopathy Respiratory: Positive: Chest non-tender, Lungs clear, Normal breath sounds, No respiratory distress Cardiovascular: Positive: RRR,S1 and S2 present, No Murmur, Pulses Normal, Brisk Capillary Refill Abdomen Description: Positive: Nontender, with no distention. No surface trauma , positive scars from gastric by pass. hyperactive bowel sounds present in all four quadrants. No tenderness, guarding, rigidity to palpation. No masses palpated, no pulsation in epigastric area. No organomegaly. Negative [place] signs. No periumbilical tenderness. No rebound in the lower quadrants. NT over [place] point. Good femoral pulses bilaterally. No hernia noted. No CVAT bilaterally Musculoskeletal: Positive: Strength Intact, ROM Intact, No Edema,FROM in all major joints, no edema, no cyanosis or clubbing. Neuro: Alert and oriented x 3. No acute neurological deficits. Speech is normal. Psychological: WNL Skin: Dry and warm Triage Information Reviewed: Yes Vital Signs: Initial Vital Signs Temp 98.1 F 09/27/18 11:13 Pulse 59 09/27/18 11:13 Resp 18 09/27/18 11:13 BP 133/85 09/27/18 11:13 Pulse Ox 100 09/27/18 11:13 Naus/Vom/Diarrhea Course/Dx - Course Course Of Treatment: 53 y/o female presents to the urgent care c/o diarrhea, CRUZ, body aches, Nausea for the past 2 days. Pt reports 4 episodes of watery diarrhea each day. Today she woke up w/ nauseas, but has not vomited. She has decrease appetite, but has been drinking fluids. Pt reports mild cramping abdominal pain which is relief by the watery diarrhea. She denies eating outside, recent travel, or taking antibiotics recently. CRUZ is mild 3/10 with mild sinus congestion. Pt denies fever, SOB, dizziness, chest pain, vomiting, blood in the stool, or urinary symptoms. Hx obtained. Pt is hemodynamically stable, Vital WNL, PE:WNL. Rapid influenza A&B:negative, UA: positive ketones. Pt most likely with a viral gastroenteritis. Pt Rx Zofran PO and famotidine PO by the nurse to alleviate symptoms. Pt unable to give stool at the clinic. Pt advised to bring back the stool, educated in how to do it. Stool culture ordered, O&P, Lactoferrin. E.Coli also ordered. Pt will be notified of the results for further treatment. Pt Rx Loperamide to alleviate Diarrhea. Advised to increase fluid intake, eat soft meals, and rest. If Symptoms worsen to go immediately to the ER for further management. Otherwise f/u with PCP if not complete resolution of symptoms for further management. Pt understood and agreed with plan of care. Left the clinic ambulating. - Differential Dx/Diagnosis Differential Diagnoses - Female: Appendicitis, Diverticulitis, Gall Bladder Disease, Gerd, Gastroenteritis (Viral), Gastroenteritis (Bacterial), Vomiting, Diarrhea, Colitis Provider Diagnosis: Viral gastroenteritis, Nausea alone Condition At Discharge: Stable Discharge - Sign-Out/Discharge Documenting (check all that apply): Patient Departure - d/c home All imaging exams completed and their final reports reviewed: No Studies - Discharge Plan Condition: Stable Disposition: HOME Prescriptions: Loperamide CAP* [Imodium CAP*] 2 mg PO Q4H PRN #12 cap PRN Reason: Diarrhea Patient Education Materials: Gastroenteritis (ED) Forms: *Work Release Referrals: Kalyani Krause MD [Primary Care Provider] - 3 Days Additional Instructions: 1- Please increase fluid intake w/ gatorade or Pedialyte , eat soft meals, rest. 2-Please collect your stool before taking any medication to stop the diarrhea and bring it back to the clinic. It will be send to the lab to r/o any abnormality. You will be notified of any abnormal result. 3- Please start taking Imodium PO as directed to alleviate diarrhea. Continue taking Tylenol PO to alleviate symptoms. 4- If you develop fever or abdominal pain w/ recurrent episodes of diarrhea despite taking medication please go immediately to the ER for further management - Billing Disposition and Condition Condition: STABLE Disposition: Home
== END 2018-09-27 14:00 | disposition home or self-care (01) ==
LOC: UCEAST 11:00
DX: A08.4 Viral intestinal infection, unspecified (principal); R11.0 Nausea; I10 Essential (primary) hypertension; J45.909 Unspecified asthma, uncomplicated; F41.9 Anxiety disorder, unspecified; F32.9 Major depressive disorder, single episode, unspecified; Z91.030 Bee allergy status; Z88.5 Allergy status to narcotic agent; Z88.0 Allergy status to penicillin; Z91.018 Allergy to other foods; Z91.048 Other nonmedicinal substance allergy status
CPT/HCPCS: 81003; 99212; A9270-GY; G0463

== ENCOUNTER 2019-04-11 13:09 | Emergency (ER) | payer OTHER ==
[2019-04-11 15:06] VITALS: BP 127/81
--- NOTE | 2019-04-11 15:13 | UC ---
Abdominal Pain Female HPI - HPI Summary HPI Summary: The patient is a 53-year-old female that presents here with 2 different issues. She states that for the past week she has had nasal congestion postnasal drip itchy eyes popping ears and sinus pressure. She is on an oral nonsedating antihistamine. The other issue is today at work she had one episode of explosive diarrhea. She was unable to make it to the bathroom. Prior to the onset of the diarrhea she has some crampy abdominal pain and felt a little diaphoretic. She denies any chest pain or shortness of breath. She denies any abdominal pain currently. She denies any UTI symptoms. She denies any abdominal bloating. She states she feels a little weak when standing. Her diarrhea was brownish. She denies any blood. - History of Current Complaint Chief Complaint: UCGI Stated Complaint: DIARRHEA Time Seen by Provider: 04/11/19 14:43 Hx Obtained From: Patient Hx Last Menstrual Period: 2005 Onset/Duration: Sudden Onset, Lasting Minutes Timing: Constant Severity Initially: Moderate Severity Currently: None Pain Intensity: 0 Location: Diffuse Character: Cramping Aggravating Factor(s): Nothing Alleviating Factor(s): Spontaneous Resolution Associated Signs and Symptoms: Positive: Diaphoresis, Cough, Diarrhea - x1 Allergies/Adverse Reactions: Allergies Allergy/AdvReac Type Severity Reaction Status Date / Time amoxicillin Allergy Intermediate Hives Verified 04/11/19 13:45 apple Allergy Intermediate Hives Verified 04/11/19 13:45 morphine Allergy Intermediate swelling Verified 04/11/19 13:45 itching Penicillins Allergy Intermediate Anaphylatic Verified 04/11/19 13:45 Shock bees Allergy Intermediate Hives Uncoded 04/11/19 13:45 SEAWEED SOAP Allergy Intermediate Hives Uncoded 04/11/19 13:45 PMH/Surg Hx/FS Hx/Imm Hx Previously Healthy: Yes Endocrine History: Dyslipidemia - Is An AMA Form Call [facility] Just the AMA Cardiovascular History: Hypertension Cancer History: Other Other Cancer History: gastric Other History Of: Hepatitis B Negative For: Anticoagulant Therapy - Surgical History Surgical History: Yes Surgery Procedure, Year, and Place: Concurrent gastric bypass, cholecystectomy, and oopharectomy (pt unsure which ovary) in 1996. Abdominal surgeries for scar tissue in 2003 and 2008. Hand, foot, and knee orthopedic surgery. . CHOLECYSTECTOMY. hernia repair 10/15/15 - Family History Known Family History: Positive: Cardiac Disease, Diabetes, Other - Depression Family History: Depression, - Social History Alcohol Use: None Substance Use Type: None Substance Use Comment - Amount & Last Used: oxycodone 3-325 Smoking Status (MU): Never Smoked Tobacco - Immunization History Most Recent Tetanus Shot: 2015/2016 season Review of Systems All Other Systems Reviewed And Are Negative: Yes Constitutional: Positive: Fatigue Skin: Positive: Negative Eyes: Positive: Negative ENT: Positive: Ear Ache, Nasal Discharge, Sinus Congestion Respiratory: Positive: Cough Cardiovascular: Positive: Negative Gastrointestinal: Positive: Abdominal Pain - resolved, Diarrhea - x1, Nausea Motor: Positive: Negative Neurovascular: Positive: Negative Musculoskeletal: Positive: Negative Neurological: Positive: Negative Psychological: Positive: Negative Physical Exam Vital Signs: Initial Vital Signs Temp 97.1 F 04/11/19 13:40 Pulse 65 04/11/19 13:40 Resp 18 04/11/19 13:40 BP 111/64 04/11/19 13:40 Pulse Ox 98 04/11/19 13:40 Abd Pain Female Course/Dx - Differential Dx/Diagnosis Provider Diagnosis: Allergic rhinitis, Diarrhea Discharge ED - Sign-Out/Discharge Documenting (check all that apply): Patient Departure All imaging exams completed and their final reports reviewed: No Studies - Discharge Plan Condition: Stable Disposition: HOME Patient Education Materials: Allergic Rhinitis (ED), Acute Diarrhea (ED) Forms: *Work Release Referrals: [facility] [place] [facility] REFERR[facility] [Outside] - As Soon As Possible Additional Instructions: To ER for new or worsening symptoms constant abd pain fever vomiting distension you need to find a bagger and stock handler helper - Billing Disposition and Condition Condition: STABLE Disposition: Home
[2019-04-11 19:37] LABS: ABS Basophils 0.1 10^3/ul (0-0.2); ABS Eosinophils 0.3 10^3/ul (0-0.6); ABS Lymphocytes 1.7 10^3/ul (1.0-4.8); ABS Monocytes 0.5 10^3/ul (0-0.8); ABS Neutrophils 2.4 10^3/ul (1.5-7.7); Eosinophil % 5.5 %; Hematocrit 39 % (35-47); Hemoglobin 12.7 g/dL (12.0-16.0); Lymphocyte % 34.1 %; Mean Corpuscular HGB Conc 33 g/dL (31-36); Mean Corpuscular Hemoglobin 30 pg (27-31); Mean Corpuscular Volume 90 fL (80-97); Mean Platelet Volume 7.2 fL (7.4-10.4); Nucleated Red Blood Cells % 0.1; Platelet Count 223 10^3/uL (150-450); Red Blood Count 4.31 10^6 /uL (3.70-4.87); Red Cell Distribution Width 15 % (10-15)
[2019-04-11 19:53] LABS: Albumin/Globulin Ratio 1.7 (1-3); BUN/Creatinine Ratio 23.8 (8-20); Calcium 9.3 mg/dL (8.6-10.3); EGFR African American 90.1 (>60); EGFR Non-African American 74.5 (>60); Globulin 2.4 g/dL (2-4); Potassium 3.9 mmol/L (3.5-5.0); Total Bilirubin 0.3 mg/dL (0.2-1.0); Total Protein 6.4 g/dL (6.4-8.9)
--- NOTE | 2019-04-12 07:18 | UC ---
- Progress Note Progress Note: cbc, cmp reviewed non concerning no change ljj Course/Dx - Diagnoses Provider Diagnoses: Allergic rhinitis, Diarrhea Discharge ED - Sign-Out/Discharge Documenting (check all that apply): Post-Discharge Follow Up All imaging exams completed and their final reports reviewed: No Studies - Discharge Plan Condition: Stable Disposition: HOME Prescriptions: Fluticasone NASAL SPRAY 50MCG* [Flonase NASAL SPRAY 50MCG*] 2 spray BOTH NARES BID #1 btl Patient Education Materials: Allergic Rhinitis (ED), Acute Diarrhea (ED) Forms: *Work Release Referrals: [facility] [place] [facility] REFERRAL [Outside] - As Soon As Possible Additional Instructions: To ER for new or worsening symptoms constant abd pain fever vomiting distension you need to find a all source collection manager - Billing Disposition and Condition Condition: STABLE Disposition: Home
== END 2019-04-11 15:40 | disposition home or self-care (01) ==
LOC: UCEAST 13:09
DX: J30.9 Allergic rhinitis, unspecified (principal); I10 Essential (primary) hypertension; R11.0 Nausea; R19.7 Diarrhea, unspecified; R10.9 Unspecified abdominal pain; R61 Generalized hyperhidrosis; Z88.0 Allergy status to penicillin; Z91.018 Allergy to other foods; Z88.5 Allergy status to narcotic agent; Z91.030 Bee allergy status; Z91.09 Other allergy status, other than to drugs and biological substances
CPT/HCPCS: 36415; 80053; 85025; 99212; G0463

== ENCOUNTER 2019-07-07 12:01 | Emergency (ER) | payer OTHER ==
[2019-07-07 12:57] VITALS: BP 125/89
--- NOTE | 2019-07-07 13:31 | UC ---
Nausea/Vomiting/Diarrhea HPI - HPI Summary HPI Summary: 53-year-old female presents with complaints of nausea, vomiting, diarrhea. Symptoms are associated with general malaise, headache, subjective fever, and shaking chills. Patient states that she has had multiple episodes of vomiting and watery diarrhea over the past 24 hours. Last episode of vomiting was approximately 9 AM this morning and last episode of diarrhea was just prior to arrival. Reports history of gastric bypass as well as several abdominal surgeries for hernia repair, cholecystectomy, and adhesions. No recent travel out of the country or recent antibiotic use. Denies dizziness, lightheadedness, hematemesis, blood in stool, melena, dysuria, frequency, urgency, back or flank pain, or hematuria. - History of Current Complaint Chief Complaint: UCGeneralIllness Stated Complaint: DIARRHEA,VOMITING Time Seen by Provider: 07/07/19 13:27 Hx Obtained From: Patient Hx Last Menstrual Period: 2005 Pain Intensity: 2 - Allergies/Home Medications Allergies/Adverse Reactions: Allergies Allergy/AdvReac Type Severity Reaction Status Date / Time amoxicillin Allergy Intermediate Hives Verified 07/07/19 12:50 apple Allergy Intermediate Hives Verified 07/07/19 12:50 morphine Allergy Intermediate swelling Verified 07/07/19 12:50 itching Penicillins Allergy Intermediate Anaphylatic Verified 07/07/19 12:50 Shock bees Allergy Intermediate Hives Uncoded 07/07/19 12:50 SEAWEED SOAP Allergy Intermediate Hives Uncoded 07/07/19 12:50 cilantro Allergy Unknown Uncoded 07/08/19 12:46 Reaction Details PMH/Surg Hx/FS Hx/Imm Hx Cardiovascular History: Hypertension GI/ History: Gastroesophageal Reflux Psychological History: Depression Other History Of: Hepatitis B Negative For: Anticoagulant Therapy - Surgical History Surgical History: Yes Surgery Procedure, Year, and Place: Concurrent gastric bypass, cholecystectomy, and oopharectomy (pt unsure which ovary) in 1996. Abdominal surgeries for scar tissue in 2003 and 2008. Hand, foot, and knee orthopedic surgery. . CHOLECYSTECTOMY. hernia repair 10/15/15 - Family History Known Family History: Positive: Cardiac Disease, Diabetes, Other - Depression Family History: Depression, - Social History Alcohol Use: None Substance Use Type: None Substance Use Comment - Amount & Last Used: oxycodone 3-325 Smoking Status (MU): Never Smoked Tobacco - Immunization History Most Recent Tetanus Shot: 2016 season Review of Systems All Other Systems Reviewed And Are Negative: Yes Constitutional: Positive: Fever, Chills ENT: Negative: Sore Throat, Ear Ache, Nasal Discharge, Sinus Congestion Respiratory: Negative: Shortness Of Breath, Cough Cardiovascular: Negative: Palpitations, Chest Pain Gastrointestinal: Positive: Abdominal Pain, Vomiting, Diarrhea, Nausea Genitourinary: Negative: Dysuria, Hematuria, Frequency, Urgency Musculoskeletal: Positive: Negative Neurological: Positive: Headache Is Patient Immunocompromised?: No Physical Exam - Summary Physical Exam Summary: GENERAL APPEARANCE: Alert and cooperative obese female who appears to be in no acute distress. EYES: Conjunctiva clear. No drainage. EARS: External auditory canals and tympanic membranes clear, hearing grossly intact. NOSE: No nasal discharge. THROAT: Pharynx normal. No tonsilar inflammation, swelling, exudate, or lesions. Uvula midline. NECK: Neck supple, non-tender without lymphadenopathy. CARDIAC: Normal S1 and S2. No S3, S4 or murmurs. Rhythm is regular. There is no peripheral edema, cyanosis or pallor. Extremities are warm and well perfused. Capillary refill is less than 2 seconds. Peripheral pulses intact. LUNGS: Clear to auscultation without rales, rhonchi, wheezing or diminished breath sounds. ABDOMEN: Positive bowel sounds. Soft, nondistended. Mild RUQ pain without guarding or rebound. No masses or hepatosplenomegally. No CVA tenderness. MUSKULOSKELETAL: ROM intact to all extremities. No joint erythema or tenderness. Normal muscular development. Normal gait. SKIN: Skin normal color, texture and turgor with no lesions or eruptions. Triage Information Reviewed: Yes Vital Signs: Initial Vital Signs Temp 99.0 F 07/07/19 12:53 Pulse 91 07/07/19 12:53 Resp 16 07/07/19 12:53 BP 125/89 07/07/19 12:53 Pulse Ox 98 07/07/19 12:53 Vital Signs Reviewed: Yes Naus/Vom/Diarrhea Course/Dx - Course Course Of Treatment: 53-year-old female presents with complaints of nausea, vomiting, diarrhea. Symptoms are associated with general malaise, headache, subjective fever, and shaking chills. Patient states that she has had multiple episodes of vomiting and watery diarrhea over the past 24 hours. Last episode of vomiting was approximately 9 AM this morning and last episode of diarrhea was just prior to arrival. Reports history of gastric bypass as well as several abdominal surgeries for hernia repair, cholecystectomy, and adhesions. No recent travel out of the country or recent antibiotic use. Denies dizziness, lightheadedness, hematemesis, blood in stool, melena, dysuria, frequency, urgency, back or flank pain, or hematuria. Afebrile. Vital signs stable. Patient had a soft nondistended abdomen with mild right upper quadrant pain without guarding otherwise exam was unremarkable. A rapid influenza test was performed and was negative. 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 Patient is agreeable to this and elects to transport via private vehicle at this time. - Differential Dx/Diagnosis Differential Diagnoses - Female: Bowel Obstruction, Pancreatitis, Gastroenteritis (Viral), Gastroenteritis (Bacterial), Vomiting, Diarrhea, Colitis, Gastritis, Incarcerated Hernia Provider Diagnosis: Abdominal pain, Vomiting and diarrhea, History of gastric bypass Condition At Discharge: Stable Discharge ED - Sign-Out/Discharge Documenting (check all that apply): Patient Departure All imaging exams completed and their final reports reviewed: No Studies - Discharge Plan Condition: Stable Disposition: HOME-RECOMMEND TO ED Referrals: No Primary Care Phys,NOPCP [Primary Care Provider] - Additional Instructions: With your history of gastric bypass and reports of fever, abdominal pain, vomiting, and diarrhea I am recommending that you go to the emergency room at this time for further evaluation. Please go directly to the emergency room from here. Do not eat or drink anything until you have been evaluated. - Billing Disposition and Condition Condition: STABLE Disposition: Home-Recommend to ED - Attestation Statements Provider Attestation: I was available for consult. This patient was seen by the [facility]. The patient was not presented to, seen by, or examined by me. -Whit
[2019-07-07 13:38] LABS: Influenza A Molecular NEGATIVE (Negative); Influenza B Molecular NEGATIVE (Negative)
== END 2019-07-07 14:00 | disposition home health service (06) ==
LOC: UCEAST 12:01
DX: R10.9 Unspecified abdominal pain (principal); R11.10 Vomiting, unspecified; R19.7 Diarrhea, unspecified; R51 Headache; I10 Essential (primary) hypertension; R11.2 Nausea with vomiting, unspecified; Z88.0 Allergy status to penicillin; Z91.018 Allergy to other foods; Z88.5 Allergy status to narcotic agent; Z91.030 Bee allergy status; Z91.09 Other allergy status, other than to drugs and biological substances; Z98.84 Bariatric surgery status
CPT/HCPCS: 99212; G0463

== ENCOUNTER 2019-07-08 12:11 | Emergency (ER) | payer OTHER ==
[2019-07-08] MEDS ORDERED: NS 0.9% 1000 ML** 1,000 ML IV ONE (12:47)
[2019-07-08] MEDS ORDERED: Ondansetron INJ* 2 MG/ML VIAL IV ONE (12:47)
[2019-07-08 13:03] LABS: Influenza A Molecular NEGATIVE (Negative); Influenza B Molecular NEGATIVE (Negative)
--- NOTE | 2019-07-08 13:08 | ED ---
Nausea/Vomiting/Diarrhea HPI - HPI Summary HPI Summary: Pt. is a 53 y.o female who presents to the ER symptoms of nausea/vomiting/ diarrhea, fatigue, body aches x several days. Pt. notes numerous family members at home have similar symptoms. Pt. notes vomiting has improved today. Pt. notes mild diffuse abdominal tenderness. Hx of numerous abd. surgeries. Pt. denies fever, cough, cp, sob, urinary sxs. Pt. seen at yesterday and had negative flu test. No current modifying factors. - History of Current Complaint Chief Complaint: EDFluSymptoms Stated Complaint: HEADACHE/FEVER/CHILLS PER PT Time Seen by Provider: 07/08/19 12:23 Hx Obtained From: Patient Hx Last Menstrual Period: 2005 Pain Intensity: 0 - Allergies/Home Medications Allergies/Adverse Reactions: Allergies Allergy/AdvReac Type Severity Reaction Status Date / Time amoxicillin Allergy Intermediate Hives Verified 07/07/19 12:50 apple Allergy Intermediate Hives Verified 07/07/19 12:50 morphine Allergy Intermediate swelling Verified 07/07/19 12:50 itching Penicillins Allergy Intermediate Anaphylatic Verified 07/07/19 12:50 Shock bees Allergy Intermediate Hives Uncoded 07/07/19 12:50 SEAWEED SOAP Allergy Intermediate Hives Uncoded 07/07/19 12:50 cilantro Allergy Unknown Uncoded 07/08/19 12:46 Reaction Details PMH/Surg Hx/FS Hx/Imm Hx Previously Healthy: Yes Endocrine/Hematology History: Denies: Hx Anticoagulant Therapy, Hx Blood Disorders, Hx Blood Transfusions, Hx Bone Marrow Disease, Hx Diabetes, Hx Systemic Lupus Erythematosus, Hx Sickle Cell Disease, Hx Thyroid Disease, Hx Anemia, Hx Unexplained Bleeding, Other Endocrine/Hematological Disorders Cardiovascular History: Reports: Hx Hypertension, Other Cardiovascular Problems/ Disorders - Heart Murmur Denies: Hx Aneurysm, Hx Angina, Hx Angioplasty, Hx Atrial Fibrillation, Hx Auto Implanted Cardiovert Defib, Hx Cardiac Arrest, Hx Cardiomegaly, Hx Congenital Heart Disease, Hx Congestive Heart Failure, Hx Coronary Artery Disease, Hx Deep Vein Thrombosis, Hx Embolism, Hx Hypercholesterolemia, Hx Hypotension, Hx Myocardial Infarction, Hx Pacemaker/ICD, Hx Peripheral Vascular Disease, Hx Rheumatic Fever, Hx Syncope, Hx Valvular Heart Disease Respiratory History: Reports: Hx Asthma, Hx Sleep Apnea Denies: Hx Bronchopulmonary Dysplasia, Hx Chronic Bronchitis, Hx Chronic Obstructive Pulmonary Disease (COPD), Hx Cystic Fibrosis, Hx Lung Cancer, Hx Pleural Effusion, Hx Pneumonia, Hx Pulmonary Edema, Hx Pulmonary Embolism, Hx Seasonal Allergies, Other Respiratory Problems/Disorders GI History: Reports: Hx Hiatal Hernia, Hx Irritable Bowel Denies: Hx Cirrhosis, Hx Crohn's Disease, Hx Diverticulosis, Hx Gall Bladder Disease, Hx Gastroesophageal Reflux Disease, Hx Gastrointestinal Bleed, Hx Jaundice, Hx Obstructive Bowel, Hx Ileostomy, Hx Pyloric Stenosis, Hx Ulcer, Hx Urosepsis, Other GI Disorders History: Reports: Other Problems/Disorders - Herpes I Denies: Hx Acute Renal Failure, Hx Benign Prostatic Hyperplasia, Hx Chronic Renal Failure, Hx Dialysis, Hx Kidney Infection, Hx Kidney Stones, Hx Renal Disease Musculoskeletal History: Reports: Hx Orthopedic Injury - ankle sprains on right , Other Musculoskeletal History - Hand, foot, and knee surgeries Sensory History: Reports: Hx Contacts or Glasses Denies: Hx Cataracts, Hx Eye Injury, Hx Eye Prosthesis, Hx Glaucoma, Hx Legally Blind, Hx Macular Degeneration, Hx Vision Problem, Hx Deafness, Hx Hearing Aid, Hx Hearing Problem, Other Sensory Impairments Opthamlomology History: Reports: Hx Contacts or Glasses Denies: Hx Cataracts, Hx Eye Injury, Hx Eye Prosthesis, Hx Glaucoma, Hx Legally Blind, Hx Macular Degeneration, Hx Vision Problem, Other Sensory Impairments Neurological History: Denies: Hx CVA, Hx Dementia, Hx Developmental Delay, Hx Headaches, Hx Migraine, Hx Nerve Disease, Hx Peripheral Neuropathy, Hx Seizures, Hx Spinal Cord Injury, Hx Transient Ischemic Attacks (TIA), Other Neuro Impairments/ Disorders Psychiatric History: Reports: Hx Anxiety, Hx Depression - Cancer History Cancer Type, Location and Year: stomach CA - Surgical History Surgery Procedure, Year, and Place: Concurrent gastric bypass, cholecystectomy, and oopharectomy (pt unsure which ovary) in 1996. Abdominal surgeries for scar tissue in 2003 and 2008. Hand, foot, and knee orthopedic surgery. . CHOLECYSTECTOMY. hernia repair 10/15/15 Infectious Disease History: No Infectious Disease History: Reports: Hx Hepatitis - Hep B Denies: Hx Clostridium Difficile, Hx Human Immunodeficiency Virus (HIV), Hx of Known/Suspected MRSA, Hx Shingles, Hx Tuberculosis, Hx Known/Suspected VRE, Hx Known/Suspected VRSA, History Other Infectious Disease, Traveled Outside the [place] in Last 30 Days - Family History Known Family History: Positive: Cardiac Disease, Diabetes, Other - Depression Family History: Depression, - Social History Occupation: Unemployed Lives: With Family Alcohol Use: None Hx Substance Use: No Substance Use Type: Reports: None Substance Use Comment - Amount & Last Used: oxycodone 3-325 Hx Tobacco Use: No Smoking Status (MU): Never Smoked Tobacco Review of Systems Positive: Chills. Negative: Fever Eyes: Negative Positive: Nasal Discharge Cardiovascular: Negative Positive: Cough. Negative: Shortness Of Breath Positive: Abdominal Pain, Vomiting, Diarrhea, Nausea Genitourinary: Negative Negative: dysuria Positive: Myalgia Skin: Negative Negative: Rash Positive: Headache All Other Systems Reviewed And Are Negative: Yes Physical Exam Triage Information Reviewed: Yes Vital Signs On Initial Exam: Initial Vitals Temp Pulse Resp BP Pulse Ox 98.7 F 86 16 137/87 97 07/08/19 12:17 07/08/19 12:17 07/08/19 12:17 07/08/19 12:17 07/08/19 12:17 Vital Signs Reviewed: Yes Procedures - Sedation Patient Received Moderate/Deep Sedation with Procedure: No Diagnostics - Vital Signs Vital Signs Temp Pulse Resp BP Pulse Ox 07/08/19 12:17 98.7 F 86 16 137/87 97 - Laboratory Lab Results: Lab Results 07/08/19 Range/Units 12:21 Influenza A (Rapid) Pending Influenza B (Rapid) Pending Result Diagrams: 07/08/19 12:55 07/08/19 12:55 Lab Statement: Any lab studies that have been ordered have been reviewed, and results considered in the medical decision making process. Naus/Vom/Diarrhea Course/Dx - Course Course Of Treatment: Patient presenting with complaints. Afebrile well- appearing. She has benign abdominal exam. Patient was given IV fluids, Zofran Tylenol. Laboratory studies unremarkable. Suspect viral etiology. Patient tolerating by mouth fluids. Discharged home a prescription for Zofran. Follow up with family doctor in 2-3 days and return to the ER symptoms change or worsen. Patient understands and agrees with plan. - Differential Dx/Diagnosis Differential Diagnoses - Female: Gastroenteritis (Viral), Gastroenteritis ( Bacterial), Vomiting, Diarrhea Provider Diagnosis: Gastroenteritis Condition At Discharge: Improved Discharge ED - Sign-Out/Discharge Documenting (check all that apply): Patient Departure - Discharge Plan Condition: Improved Disposition: HOME Prescriptions: Ondansetron HCl [Zofran] 4 mg PO Q6H #12 tablet Patient Education Materials: Gastroenteritis (ED) Referrals: [facility] [Outside] Additional Instructions: Follow up with the [facility] in 2-3 days for recheck Zofran as directed Increase fluids and rest Tylenol for discomfort as directed Return to ER if symptoms change or worsen - Billing Disposition and Condition Condition: IMPROVED Disposition: Home - Attestation Statements Provider Attestation: I was available for consultation for this patient. I did not evaluate the patient or participate in any medical decision making or disposition decisions unless I am specifically named in the chart as having consulted on the patient. If I have consulted on the patient, please see my own ED note on the patient encounter. Lev Mcclelland MD
[2019-07-08 13:09] LABS: ABS Eosinophils 0.2 10^3/ul (0-0.6); ABS Lymphocytes 1.2 10^3/ul (1.0-4.8); ABS Monocytes 0.4 10^3/ul (0-0.8); ABS Neutrophils 2.9 10^3/ul (1.5-7.7); Eosinophil % 5.2 %; Hematocrit 41 % (35-47); Hemoglobin 14.1 g/dL (12.0-16.0); Lymphocyte % 25.3 %; Mean Corpuscular HGB Conc 34 g/dL (31-36); Mean Corpuscular Hemoglobin 30 pg (27-31); Mean Corpuscular Volume 88 fL (80-97); Nucleated Red Blood Cells % 0.1; Platelet Count 179 10^3/uL (150-450); Red Cell Distribution Width 15 % (10-15); White Blood Count 4.8 10^3/uL (3.5-10.8)
[2019-07-08] MEDS ORDERED: Acetaminophen TAB* 325 MG PO ONE (13:27)
[2019-07-08 13:49] LABS: Albumin 3.8 g/dL (3.2-5.2); Albumin/Globulin Ratio 1.5 (1-3); BUN/Creatinine Ratio 22.2 (8-20); Calcium 8.7 mg/dL (8.6-10.3); EGFR African American 118.7 (>60); EGFR Non-African American 98.1 (>60); Globulin 2.5 g/dL (2-4); Potassium 3.6 mmol/L (3.5-5.0); Total Bilirubin 0.3 mg/dL (0.2-1.0); Total Protein 6.3 g/dL (6.4-8.9)
[2019-07-08 14:43] VITALS: BP 117/78
== END 2019-07-08 14:43 | disposition home or self-care (01) ==
LOC: ED 12:11
DX: K52.9 Noninfective gastroenteritis and colitis, unspecified (principal); I10 Essential (primary) hypertension; F41.9 Anxiety disorder, unspecified; F32.9 Major depressive disorder, single episode, unspecified; Z85.028 Personal history of other malignant neoplasm of stomach; Z98.84 Bariatric surgery status; Z90.49 Acquired absence of other specified parts of digestive tract; Z90.721 Acquired absence of ovaries, unilateral; Z88.0 Allergy status to penicillin; Z88.5 Allergy status to narcotic agent
CPT/HCPCS: 36415; 80053; 83690; 85025; 96361; 96374; 99282; A9270-GY; J2405

== ENCOUNTER 2019-08-09 12:12 | Emergency (ER) | payer OTHER ==
--- NOTE | 2019-08-09 12:14 | UC ---
General HPI - HPI Summary HPI Summary: patient to this am with medication bottles that she would like to be refilled also some "medications from memory" that she would like to be refilled ---patient reports she has an appointment with Dr. Lazar in 3 weeks - History of Current Complaint Chief Complaint: UCMedRefill Stated Complaint: MEDICATION REFILL Time Seen by Provider: 08/09/19 12:13 Hx Obtained From: Patient Hx Last Menstrual Period: 2005 Onset/Duration: Gradual Onset Timing: Constant Current Severity: None Associated Signs & Symptoms: Positive: Other - Allergy/Home Medications Allergies/Adverse Reactions: Allergies Allergy/AdvReac Type Severity Reaction Status Date / Time amoxicillin Allergy Intermediate Hives Verified 08/09/19 12:31 apple Allergy Intermediate Hives Verified 08/09/19 12:31 morphine Allergy Intermediate swelling Verified 08/09/19 12:31 itching Penicillins Allergy Intermediate Anaphylatic Verified 08/09/19 12:31 Shock bees Allergy Intermediate Hives Uncoded 08/09/19 12:31 SEAWEED SOAP Allergy Intermediate Hives Uncoded 08/09/19 12:31 cilantro Allergy Unknown Uncoded 08/09/19 12:31 Reaction Details Home Medications: Home Medications Albuterol HFA INHALER* [Ventolin HFA Inhaler*] 2 puff INH Q6H PRN #1 mdi [Rx] DULoxetine CAP* [Cymbalta CAP*] 60 mg PO DAILY #30 cap. 08/09/19 [Rx] Sucralfate TAB* [Carafate*] 1 gm PO 0700,1100,1600,2100 #120 tab 08/09/19 [Rx] PMH/Surg Hx/FS Hx/Imm Hx Previously Healthy: No GI/ History: Gastroesophageal Reflux Psychological History: Anxiety Other History Of: Hepatitis B Negative For: Anticoagulant Therapy - Surgical History Surgical History: Yes Surgery Procedure, Year, and Place: Concurrent gastric bypass, cholecystectomy, and oopharectomy (pt unsure which ovary) in 1996. Abdominal surgeries for scar tissue in 2003 and 2008. Hand, foot, and knee orthopedic surgery. . CHOLECYSTECTOMY. hernia repair 10/15/15 - Family History Known Family History: Positive: Cardiac Disease, Diabetes, Other - Depression Family History: Depression, - Social History Occupation: Unemployed Lives: With Family Alcohol Use: None Substance Use Type: None Substance Use Comment - Amount & Last Used: oxycodone 3-325 Smoking Status (MU): Never Smoked Tobacco - Immunization History Most Recent Tetanus Shot: 2016/2016 season Review of Systems All Other Systems Reviewed And Are Negative: Yes Constitutional: Positive: Negative Skin: Positive: Negative Eyes: Positive: Negative ENT: Positive: Negative Respiratory: Positive: Negative Cardiovascular: Positive: Negative Gastrointestinal: Positive: Negative Genitourinary: Positive: Negative Motor: Positive: Negative Neurovascular: Positive: Negative Musculoskeletal: Positive: Arthralgia, Myalgia Neurological/Mental Status: Positive: Negative Psychological: Positive: Negative Is Patient Immunocompromised?: No Physical Exam Triage Information Reviewed: Yes Appearance: Well-Appearing, No Pain Distress, Obese Vital Signs Reviewed: Yes Eye Exam: Normal Eyes: Positive: Conjunctiva Clear ENT Exam: Normal ENT: Positive: Normal ENT inspection, Hearing grossly normal. Negative: Trismus , Muffled voice, Hoarse voice Dental Exam: Normal Neck exam: Normal Neck: Positive: Supple, Nontender Respiratory Exam: Normal Respiratory: Positive: Chest non-tender, No respiratory distress, No accessory muscle use Cardiovascular Exam: Normal Cardiovascular: Positive: RRR, Pulses Normal, Brisk Capillary Refill Musculoskeletal Exam: Normal Musculoskeletal: Positive: Strength Intact, ROM Intact, No Edema Neurological Exam: Normal Neurological: Positive: Alert, Muscle Tone Normal Psychological Exam: Normal Skin Exam: Normal Course/Dx - Course Course Of Treatment: called [facility] some of the medications the patient believes she is suppose to be on and got filled at [facility]---some of them have not be rx in n>5-6 months-- will refill cymbalta , albuterol and carafate---other post patient will follow with pcp as she has no specific sx and has been non-adherent for so long-- patient understands plan and admits to being very non adherent to treatment-- encouraged her to use a pill box and establish pcp care- - Diagnoses Provider Diagnosis: Medication non-compliance due to excessive pill burden Discharge ED - Sign-Out/Discharge Documenting (check all that apply): Patient Departure All imaging exams completed and their final reports reviewed: No Studies - Discharge Plan Condition: Stable Disposition: HOME Prescriptions: Albuterol HFA INHALER* [Ventolin HFA Inhaler*] 2 puff INH Q6H PRN #1 mdi PRN Reason: wheeze DULoxetine CAP* [Cymbalta CAP*] 60 mg PO DAILY #30 cap. Sucralfate TAB* [Carafate*] 1 gm PO 0700,1100,1600,2100 #120 tab Patient Education Materials: Medicine Refill (ED) Referrals: Agustín Lazar MD [Medical Doctor] - As Soon As Possible - Billing Disposition and Condition Condition: STABLE Disposition: Home - Attestation Statements Provider Attestation: This patient was not seen by me. I was available for consult. Chart reviewed. LISHA
[2019-08-09 12:40] VITALS: BP 124/72
== END 2019-08-09 13:05 | disposition home or self-care (01) ==
LOC: UCEAST 12:12
DX: Z76.0 Encounter for issue of repeat prescription (principal); M79.10 Myalgia, unspecified site; F41.9 Anxiety disorder, unspecified; Z91.14 Patient's other noncompliance with medication regimen; Z88.0 Allergy status to penicillin; Z91.018 Allergy to other foods; Z88.5 Allergy status to narcotic agent; Z91.030 Bee allergy status; Z91.09 Other allergy status, other than to drugs and biological substances; Z79.899 Other long term (current) drug therapy
CPT/HCPCS: 99212; G0463